=== PATIENT | female | born 1945 | race Caucasian/White ===

== ENCOUNTER → 2017-05-14 | Outpatient (CLI) | payer MEDICARE ==
--- NOTE | 2017-05-15 13:31 | MM ---
Reason for exam: screening (asymptomatic). Last mammogram was performed 1 year and 3 months ago. History: Patient is postmenopausal. Reductions of both breasts, 2004. Took estrogen for 2 years beginning at age 47. Physical Findings: A clinical breast exam by your physician is recommended on an annual basis and results should be correlated with mammographic findings. MG Screening Mammo w CAD Bilateral CC and MLO view(s) were taken. Prior study comparison: February 07, 2016, bilateral MG screening mammo w CAD. November 07, 2014, bilateral MG screening mammo w CAD. The breast tissue is almost entirely fat. No significant changes when compared with prior studies. ASSESSMENT: Benign, BI-RAD 2 RECOMMENDATION: Routine screening mammogram of both breasts in 1 year.
== END | disposition home or self-care (01) ==
LOC: RADMAMWWP 12:29
PROVIDERS: ATTEND Family Medicine
DX: Z12.31 Encounter for screening mammogram for malignant neoplasm of breast (principal)
CPT/HCPCS: 77067

== ENCOUNTER → 2018-08-05 | Outpatient (CLI) | payer MEDICARE ==
--- NOTE | 2018-08-09 09:15 | MM ---
Reason for exam: screening (asymptomatic). Last mammogram was performed 1 year and 3 months ago. History: Patient is postmenopausal. Reductions of both breasts, 2004. Took estrogen for 2 years beginning at age 47. Physical Findings: A clinical breast exam by your physician is recommended on an annual basis and results should be correlated with mammographic findings. MG Screening Mammo w CAD Bilateral CC and MLO view(s) were taken. Prior study comparison: May 14, 2017, bilateral MG screening mammo w CAD. February 07, 2016, bilateral MG screening mammo w CAD. The breast tissue is almost entirely fat. No significant changes when compared with prior studies. ASSESSMENT: Negative, BI-RAD 1 RECOMMENDATION: Routine screening mammogram of both breasts in 1 year.
== END | disposition home or self-care (01) ==
LOC: RADMAMWWP 13:00
PROVIDERS: ATTEND Family Medicine
DX: Z12.31 Encounter for screening mammogram for malignant neoplasm of breast (principal)
CPT/HCPCS: 77067

== ENCOUNTER → 2020-05-08 | Outpatient (CLI) | payer MEDICARE ==
--- NOTE | 2020-05-09 10:43 | MM ---
Reason for exam: screening (asymptomatic). Last mammogram was performed 1 year and 9 months ago. History: Patient is postmenopausal. Reductions of both breasts, 2004. Took hormonal contraceptives for 6 years. Took estrogen for 2 years beginning at age 47. Physical Findings: A clinical breast exam by your physician is recommended on an annual basis and results should be correlated with mammographic findings. MG 3D Screening Mammo W/Cad Bilateral CC and MLO view(s) were taken. Prior study comparison: August 05, 2018, bilateral MG screening mammo w CAD. May 14, 2017, bilateral MG screening mammo w CAD. There are scattered fibroglandular densities. Finding: There are two groups of calcifications in the lower inner quadrant and upper outer quadrant, anterior position of the left breast. New finding and increase in number of calcifications in the upper outer quadrant group since August 05, 2018 and May 14, 2017. ASSESSMENT: Incomplete: need additional imaging evaluation, BI-RAD 0 RECOMMENDATION: Special view mammogram of the left breast. [facility] will attempt to contact patient to return for supplemental views.
--- NOTE | 2020-05-11 08:13 | BD ---
EXAMINATION TYPE: Axial Bone Density DATE OF EXAM: 05/08/2020 COMPARISON: NONE CLINICAL HISTORY: Height: 61 Weight: 186.3 FRAX RISK QUESTIONS: Alcohol (3 or more units per day): no Family History (Parent hip fracture): no Glucocorticoids (More than 3mos): no (Ex: prednisone, prednisolone, methylprednisolone, dexamethasone, and hydrocortisone). History of Fracture in Adulthood: no Secondary Osteoporosis: 1. Type 1 Diabetes: no 2. Hyperthyroidism: no 3. Menopause before 45: no 4. Malnutrition: no 5. Chronic liver disease: no Rheumatoid Arthritis: no Current Tobacco Use: no RISK FACTORS HISTORY OF: Surgery to Spine/Hip(right/left)/Wrist (right/left): no Family History of Osteoporosis: no Active: yes Diet low in dairy products/other sources of calcium: no Postmenopausal woman: age 47 Lost more than 2 inches in height since high school: no MEDICATIONS: lexapro, prevacid, lopressor, wellbutrin, lovastatin Thyroid Medications: synthroid How Lon years Additional History: EXAM MEASUREMENTS: Bone mineral densitometry was performed using the [employer]ideoflot System. Bone mineral density as measured about the Lumbar spine is: ----- L1-L4(G/cm2): 1.201 T Score Values are as follows: ----- L2: 0.1 ----- L3: 0.5 ----- L4: 0.0 ----- L1-L4: 0.2 Bone mineral density : baseline Bone mineral density about the R hip (g/cm2): 0.981 Bone mineral density about the L hip (g/cm2): 0.918 T Score values are as follows: -----R Neck: -0.4 -----L Neck: -0.9 -----R Total: 0.0 -----L Total: -0.1 Bone mineral density : baseline IMPRESSION: Normal (Values between +1 and -1 indicate normal bone mass). Consider repeating this study in 5 year s or sooner if there is some new clinical indication. NOTE: T-SCORE=SD OF THE YOUNG ADULT MEAN.
== END | disposition home or self-care (01) ==
LOC: RADMAMWWP 15:14
PROVIDERS: ATTEND Family Medicine
DX: Z12.31 Encounter for screening mammogram for malignant neoplasm of breast (principal); Z78.0 Asymptomatic menopausal state
CPT/HCPCS: 77063; 77067; 77080

== ENCOUNTER → 2020-05-10 | Outpatient (CLI) | payer MEDICARE ==
--- NOTE | 2020-05-10 09:19 | MM ---
Reason for exam: additional evaluation requested from abnormal screening. Last mammogram was performed less than 1 month ago. History: Patient is postmenopausal. Reductions of both breasts, 2004. Took hormonal contraceptives for 6 years. Took estrogen for 2 years beginning at age 47. Physical Findings: Nurse did not find any significant physical abnormalities on exam. MG 3D Work Up W/Cad LT CC with magnification, ML with magnification, and ML view(s) were taken of the left breast. Prior study comparison: August 05, 2018, bilateral MG screening mammo w CAD. May 14, 2017, bilateral MG screening mammo w CAD. There are scattered fibroglandular densities. Finding: There are coarse heterogeneous, grouped/clustered calcifications in the upper outer quadrant, anterior position of the left breast 4cm from the nipple consistent with 2019 appearance and number, increased from 2018. No significant changes in finding since August 05, 2018 and May 14, 2017. These results were verbally communicated with the patient and result sheet given to the patient on 05/10/20. ASSESSMENT: Suspicious, BI-RAD 4 RECOMMENDATION: Stereotactic core biopsy of the left breast. Called Dr. Real's office with mammographic findings and has scheduled an appointment for the patient for 06/07/[address] Israel. PRELIMINARY REPORT CALLED AND FAXED TO DR. ISRAEL ON 05/10/20.
== END | disposition home or self-care (01) ==
LOC: RADMAMWWP 07:39
PROVIDERS: ATTEND Family Medicine
DX: Z78.0 Asymptomatic menopausal state (principal)
CPT/HCPCS: 77065; G0279; 77061

== ENCOUNTER → 2020-06-07 | Outpatient (CLI) | payer MEDICARE ==
[2020-06-07 11:43] VITALS: BP 174/73; PULSE 54; RESP 18; TEMP 98
--- NOTE | 2020-06-07 12:11 | P.GSHP ---
History of Present Illness H&P Date: 06/07/20 Chief Complaint: abnormal left breast mammogram Jane is a 75 -year-old white female seen in consultation for Dr. Real regarding the mammographic abnormality in the left breast. She underwent a bilateral screening mammogram and [id number]. This revealed some increased calcifications in the upper outer quadrant of the left breast[place] [id number]. She was noted to have coarse heterogeneous group calcifications in the upper outer quadrant anterior position of the left breast. No lesions of concern had been seen in the right breast. She does not feel any lumps masses or nodules in her breast. She does not complain of any nipple dis charge or skin changes. She is not complaining of any breast pain. She does not complain of any recent trauma or infection in the breast. She did have bilateral breast reduction in 2003. Caffeine: 4 cups coffee/day nicotine: none chocolate: Several times a week hormones: None Family history: brother: bladder and liver cancer maternal uncle: lung cancer Hormonal history: Menarche: 13 , breast fed; no, age at first : 24 menopasue: 52 BCP: 3 years hormones: none Surgical history: Bilateral breast reduction 2 C-sections Right kidney removed/infections no cancer Medical History: back and neck pain Fissures and hemorrhoids HTN hypothyroid high cholesterol TIA Social History: smoke: stopped 40 years ago alcohol: occasional drugs: none - Constitutional Constitutional: Reports sweats, Denies chills, Denies fever - EENT Eyes: denies blurred vision, denies pain Ears: bilateral: tinnitus, deny: decreased hearing Ears, nose, mouth and throat: Reports headache, Denies sore throat - Breasts Breasts: bilateral: as per HPI - Cardiovascular Cardiovascular: Reports shortness of breath, Denies chest pain - Respiratory Comment: hoarseness related to sinus Respiratory: Denies cough, Denies 7 - Gastrointestinal Gastrointestinal: Reports constipation - Genitourinary (Female) Genitourinary: Reports as per HPI - Menstruation Menstruation: Reports postmenopausal - Musculoskeletal Comment: Back and neck pain - Integumentary Comment: dry skin Integumentary: Reports pruritus - Neurological Neurological: Reports weakness - Psychiatric Psychiatric: Reports anxiety, Denies depression - Endocrine Comment: hypothyroid - Hematologic/Lymphatic Comment: aspirin/motrin for muscle pain - Allergic/Immunologic Comment: sinus allergies Past Medical History Past Medical History: CVA/TIA, Hyperlipidemia, Hypertension, Thyroid Disorder History of Any Multi-Drug Resistant Organisms: None Reported Past Surgical History: Breast Surgery, Section, Tonsillectomy Additional Past Surgical History / Comment(s): rt nephrectomy Past Anesthesia/Blood Transfusion Reactions: No Reported Reaction Smoking Status: Former smoker Past Alcohol Use History: Rare Past Drug Use History: None Reported Medications and Allergies Home Medications Medication Instructions Recorded Confirmed Type Escitalopram [Lexapro] 10 mg PO DAILY 06/24/13 06/07/20 History Lansoprazole [Prevacid] 30 mg PO DAILY 06/24/13 06/07/20 History Levothyroxine Sodium [Synthroid] 50 mcg PO DAILY 06/24/13 06/07/20 History Lovastatin [Mevacor] 40 mg PO HS 06/24/13 06/07/20 History Aspirin 81 mg PO DAILY 06/07/20 06/07/20 History Calcium Carbonate/Vitamin D3 600 mg PO DAILY 06/07/20 06/07/20 History [Caltrate 600 Plus D3 20 Mcg (800 Iu)] Cholecalciferol (Vitamin D3) 125 mcg PO DAILY 06/07/20 06/07/20 History [Vitamin D3 (5000 Iu)] L.acidoph,Paracasei, B.lactis 1 each PO DAILY 06/07/20 06/07/20 History [Probiotic] Metoprolol Tartrate [Lopressor] 25 mg PO BID 06/07/20 06/07/20 History Stool Softener 1 tab PO BID 06/07/20 06/07/20 History buPROPion XL [Wellbutrin Xl] 150 mg PO DAILY 06/07/20 06/07/20 History Allergies Allergy/AdvReac Type Severity Reaction Status Date / Time No Known Allergies Allergy Verified 06/07/20 11:35 Surgical - Exam Vital Signs Temp Pulse Resp BP Pulse Ox 98.0 F 54 L 18 174/73 98 06/07/20 11:40 06/07/20 11:40 06/07/20 11:40 06/07/20 11:40 06/07/20 11:40 BMI 35.9 - General no distress - Eyes normal ocular movement - Neck no masses, trachea midline - Respiratory normal expansion, normal respiratory effort, clear to auscultation - Cardiovascular Rhythm: regular Heart Sounds: normal: S1, S2 - Abdomen Abdomen: soft, non tender, no guarding, no rigid, no rebound - Integumentary normal turgor - Neurologic no disoriented, no combative - Musculoskeletal normal gait - Psychiatric oriented to time, oriented to person, oriented to place, speech is normal, memory intact breast exam: BRA: 48D Inspection: Bilateral grade 2/3 ptosis Palpation: right breast: Multi-positional exam fibrocystic changes no dominant masses or nodules of concern, well-healed scar from prior reduction mammoplasty Right axilla: No adenopathy of concern Left breast: Multi-positional exam fibrocystic changes no dominant masses or nodules of concern, well-healed scars from prior reduction mammoplasty Left axilla: No adenopathy of concern Results Mammogram reviewed with Dr. Lamb and discussed with him Assessment and Plan Assessment: Impression: 1. Mammographic abnormality left breast upper outer quadrant anterior region 2. Patient status post bilateral reduction mammoplasty 3. Back and neck pain 4. Anxiety 5. Hypothyroidism 6. History of TIAs Plan: 1. Patient to undergo stereotactic core biopsy left breast 2. Medical management of medical conditions 3. We have discussed the patient laying on the stereo table was secondary to her back and neck pain and she states that that should be no problem Risks and benefits of the procedure discussed with the patient. She understands and wishes to proceed. CC: Dr. Real
== END ==
LOC: WWCWWP 11:05
PROVIDERS: ATTEND Surgery
DX: R92.1 Mammographic calcification found on diagnostic imaging of breast (principal); I10 Essential (primary) hypertension; E03.9 Hypothyroidism, unspecified; E78.5 Hyperlipidemia, unspecified; F41.9 Anxiety disorder, unspecified; Z87.891 Personal history of nicotine dependence; Z98.86 Personal history of breast implant removal; Z79.82 Long term (current) use of aspirin; Z79.899 Other long term (current) drug therapy; Z86.73 Personal history of transient ischemic attack (TIA), and cerebral infarction without residual deficits

== ENCOUNTER → 2020-06-28 | Day surgery (SDC) | payer MEDICARE ==
[2020-06-28 07:14] VITALS: RESP 16
--- NOTE | 2020-06-28 08:29 | P.PCN ---
Date of Procedure: 06/28/20 Preoperative Diagnosis: Microcalcifications of concern left breast Postoperative Diagnosis: Same Procedure(s) Performed: Stereotactic core biopsy left breast Anesthesia: local Surgeon: Mary Israel Estimated Blood Loss (ml): 3 Pathology: other (Breast tissue) Condition: stable Disposition: same day Indications for Procedure: Microcalcifications of concern left breast Operative Findings: Microcalcifications noted in x-ray of specimen Description of Procedure: Jane is a 75-year-old white female who was noted to have microcalcifications of concern in her left breast. Stereotactic core biopsy was recommended. Risks and benefits of the procedure as well as alternatives were discussed and the patient wished to proceed. The patient was taken to the stereotactic core biopsy room. She was positioned prone on the lo-rad table. A loan secretary film CC from above approach was utilized. The area of concern was identified. The area was targeted. The breast was prepped using Betadine. 20 mL of 1% lidocaine was used to anesthetize the area of concern. A 9-gauge vacuum-assisted core rotating biopsy needle was driven to the correct coordinates. Pre-fire film was obtained. The needle was noted to be in the correct location. The needle was fired. A post fire film was obtained. The needle was noted to be in the correct location. 5 samples were obtained. Radiograph of the specimen revealed the area of concern had been adequately sampled. A secure hira Top-Hat clip was placed. The specimen was sent to pathology. The patient will follow-up with Dr. Aj next week.
[2020-06-28 08:57] VITALS: BP 160/72; PULSE 54; TEMP 98
--- NOTE | 2020-06-28 09:02 | MM ---
EXAMINATION TYPE: MG stereo VAD BX LT DATE OF EXAM: 06/28/2020 COMPARISON: Prior mammogram May 10, 2020 and older studies CLINICAL HISTORY: Abnormal mammogram TECHNIQUE: Stereotactic guided core biopsy of left breast with clip placement and follow-up diagnostic two-view mammogram.. FINDINGS: The procedure of stereotactic guided core biopsy was explained to the patient. Benefits, alternatives, and risks were discussed. An informed consent was then obtained. [facility] Shortness pathway was lateral approach. I performed the localization, then surgeon, Dr. Israel performed the remainder of the procedure. A vacuum assisted biopsy gun was used to obtain multiple core samples. The patient tolerated the procedure well without any immediate complication. The patient was kept in the radiology department for short stay after the procedure and then discharged home in stable condition. Targeted calcifications are identified in specimen mammogram. Post biopsy mammogram shows the clip to appear in satisfactory position relative to the targeted area of concern on the preprocedure images. Few residual calcifications seen mammographically 1 cm inferior to the clip on postprocedure mammogram. IMPRESSION: SUCCESSFUL, UNCOMPLICATED STEREOTACTIC GUIDED CORE BIOPSY OF AREA OF CONCERN IN THE LEFT BREAST, FULL PATHOLOGY RESULTS TO FOLLOW. Low to intermediate index of suspicion noted at time of procedure. 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 Recommendation Follow up mammogram of the left breast in 6 months. MTDD
== END ==
LOC: RADMAMWWP 06:53
PROVIDERS: ATTEND Surgery
DX: D24.2 Benign neoplasm of left breast (principal); R92.1 Mammographic calcification found on diagnostic imaging of breast; R92.8 Other abnormal and inconclusive findings on diagnostic imaging of breast
CPT/HCPCS: 88305; 19081; A4648; J2001

== ENCOUNTER → 2020-07-05 | Outpatient (CLI) | payer MEDICARE ==
[2020-07-05 09:46] VITALS: BP 168/89; PULSE 56; RESP 18; TEMP 97.8
--- NOTE | 2020-07-05 09:52 | P.PN ---
Subjective Progress Note Date: 07/05/20 Principal diagnosis: fiboradenomatoid hyperplasia with calcifications and background fibrocystic changes Jane is a 75-year-old white female status post a tactic core biopsy of the left breast performed on 5620. Pathology was benign showing fibroadenomatoid hyperplasia with calcifications and background fibrocystic changes. She has some mild ecchymosis at the biopsy site with some minimal drainage. There is no evidence of any infection. She did have some skin e xcoriation related to the tape. Objective - Constitutional General appearance: Present: obese - EENT Eyes: Present: EOMI ENT: Present: hearing grossly normal - Neck Neck: Present: normal ROM - Respiratory Respiratory: bilateral: CTA - Cardiovascular Rhythm: regular Heart sounds: normal: S1, S2 - Integumentary Integumentary Comment(s): Ecchymosis at biopsy site, no evidence of infection or hematoma minimal spotting at the actual needle insertion site, patient is on aspirin - Musculoskeletal Musculoskeletal: Present: gait normal - Psychiatric Psychiatric: Present: A&O x's 3, appropriate affect, intact judgment & insight Assessment and Plan Assessment: Impression: 1. Left breast core biopsy/pathology benign fibrocystic changes Plan: 1. Repeat left breast mammogram in 6 months with physician exam at that time Cc: Dr. pleitez
== END ==
LOC: WWCWWP 09:33
PROVIDERS: ATTEND Surgery
DX: N60.12 Diffuse cystic mastopathy of left breast (principal); Z87.891 Personal history of nicotine dependence

== ENCOUNTER → 2020-10-17 | Outpatient (CLI) | payer MEDICARE ==
--- NOTE | 2020-10-17 11:26 | US ---
EXAMINATION TYPE: US liver DATE OF EXAM: 10/17/2020 COMPARISON: NONE CLINICAL HISTORY: Q44.6 CYSTIC DISEASE OF LIVER. Pt states cyst on liver seen on outside MRI, right k idney surgically removed EXAM MEASUREMENTS: Liver Length: 14.6 cm Gallbladder Wall: 0.2 cm CBD: 1.0 cm Pancreas: 3mm pancreatic duct visualized Liver: A couple of probable cysts visualized within right lobe, largest right posterior lobe with se ptation= 1.6 x 0.9 x 1.4 cm Gallbladder: 1.0 cm non-mobile gallstone within neck Evidence for sonographic Leonard's sign: No CBD: wnl Right Kidney: Surgically absent IMPRESSION: Hepatic cysts. Multiple stone.
== END | disposition home or self-care (01) ==
LOC: RADUSWWP 09:22
PROVIDERS: ATTEND Family Medicine
DX: K76.89 Other specified diseases of liver (principal); K80.20 Calculus of gallbladder without cholecystitis without obstruction
CPT/HCPCS: 76705

== ENCOUNTER → 2021-01-10 | Outpatient (CLI) | payer MEDICARE ==
--- NOTE | 2021-01-10 14:29 | MM ---
Reason for exam: follow-up at short interval from prior study. Last mammogram was performed 8 months ago. History: Patient is postmenopausal. Benign MG stereo VAD BX LT of the left breast, June 28, 2020. Reductions of both breasts, 2003. Took hormonal contraceptives for 6 years. Took estrogen for 2 years beginning at age 47. Physical Findings: Nurse did not find any significant physical abnormalities on exam. MG 3D Diag Mammo W/Cad LT CC, MLO, and XCCL view(s) were taken of the left breast. Prior study comparison: May 10, 2020, left breast MG 3d work up w/cad LT. May 08, 2020, bilateral MG 3d screening mammo w/cad. The breast tissue is almost entirely fat. Previous mammotome biopsy in the left breast. No significant new findings when compared with previous films. These results were verbally communicated with the patient and result sheet given to the patient on 01/10/21. ASSESSMENT: Benign, BI-RAD 2 RECOMMENDATION: Return to routine screening mammogram schedule for both breasts. Back on schedule.
== END ==
LOC: RADMAMWWP 10:13
PROVIDERS: ATTEND Surgery
DX: R92.2 Inconclusive mammogram (principal); Z78.0 Asymptomatic menopausal state
CPT/HCPCS: 77065; G0279; 77061

== ENCOUNTER → 2021-01-25 | Outpatient (CLI) | payer MEDICARE ==
[2021-01-25 08:59] VITALS: BP 147/71; PULSE 69; RESP 18; TEMP 97.8
--- NOTE | 2021-01-25 09:18 | P.PN ---
Subjective Progress Note Date: 01/25/21 Principal diagnosis: surveillance fibrocystic breast changes Jane is a 75 -year-old white female seen in June [address] Real regarding a mammographic abnormality in the left breast. [place] [address]. This revealed some increased calcifications in the upper outer quadrant of the left breast[place] [address]. She was noted to have coarse heterogeneous group calcifications in the upper outer quadrant anterior position of the left breast. No lesions of concern had been seen in the right breast. She underwent a stereotactic core biopsy of the left breast on 56. Pathology was benign showing fibroadenomatoid hyperplasia with calcifications and background fibrocystic changes.She does not feel any lumps masses or nodules in her breast. She does not complain of any nipple discharge or skin changes. She is not complaining of any breast pain. She does not complain of any recent trauma or infection in the breast. She did have bilateral breast reduction in 2003. she had a left breast mammogram performed on [id number] this was benign BIRADS 2. Caffeine: 4 cups coffee/day nicotine: none chocolate: Several times a week hormones: None Family history: brother: bladder and liver cancer maternal uncle: lung cancer Hormonal history: Menarche: 13 , breast fed; no, age at first : 24 menopasue: 52 BCP: 3 years hormones: none Surgical history: Bilateral breast reduction 2 C-sections Right kidney removed/infections no cancer Medical History: back and neck pain Fissures and hemorrhoids HTN hypothyroid high cholesterol TIA Social History: smoke: stopped 40 years ago alcohol: occasional drugs: none - Constitutional Constitutional: Reports sweats, Denies chills, Denies fever - EENT Eyes: denies blurred vision, denies pain Ears: bilateral: tinnitus, deny: decreased hearing Ears, nose, mouth and throat: Reports headache, Denies sore throat - Breasts Breasts: bilateral: as per HPI - Cardiovascular Cardiovascular: Reports shortness of breath, Denies chest pain - Respiratory Comment: hoarseness related to sinus Respiratory: Denies cough, Denies 7 - Gastrointestinal Gastrointestinal: Reports constipation - Genitourinary (Female) Genitourinary: Reports as per HPI - Menstruation Menstruation: Reports postmenopausal - Musculoskeletal Comment: Back and neck pain - Integumentary Comment: dry skin Integumentary: Reports pruritus - Neurological Neurological: Reports weakness - Psychiatric Psychiatric: Reports anxiety, Denies depression - Endocrine Comment: hypothyroid - Hematologic/Lymphatic Comment: aspirin/motrin for muscle pain - Allergic/Immunologic Comment: sinus allergies Objective - Vital Signs Vital signs: Vital Signs Temp 97.8 F 01/25/21 08:56 Pulse 69 01/25/21 08:56 Resp 18 01/25/21 08:56 BP 147/71 01/25/21 08:56 Pulse Ox 94 L 01/25/21 08:56 Intake & Output 01/24/21 01/25/21 01/25/21 18:59 06:59 18:59 Weight 81.647 kg - Constitutional General appearance: Present: cooperative - EENT Eyes: Present: EOMI ENT: Present: hearing grossly normal - Neck Neck: Present: normal ROM - Respiratory Respiratory: bilateral: CTA - Cardiovascular Heart sounds: normal: S1, S2 - Gastrointestinal General gastrointestinal: Present: soft - Integumentary Integumentary: Present: normal turgor - Musculoskeletal Musculoskeletal: Present: gait normal - Psychiatric Psychiatric: Present: A&O x's 3, appropriate affect, intact judgment & insight - Additional findings Additional findings: Breast Exam: BRA: 48D inspection: bilateral reduction mammoplasty incisions Palpation: Right breast: Multiple positional exam fibrocystic changes no dominant masses or nodules of concern Right axilla: No adenopathy of concern Left breast: Multiple positional exam fibrocystic changes no dominant masses or nodules of concern Left axilla: No adenopathy of concern Assessment and Plan Assessment: impression: Fibrocystic breast changes Recent repeat left breast mammogram stable benign BIRADS 2 Plan: Bilateral mammogram in 6 months with physician exam at that time Patient notes any of concern with the patient sooner CC: Dr. Real
== END ==
LOC: WWCWWP 08:44
PROVIDERS: ATTEND Surgery
DX: N60.12 Diffuse cystic mastopathy of left breast (principal); I10 Essential (primary) hypertension; E03.9 Hypothyroidism, unspecified; E78.00 Pure hypercholesterolemia, unspecified; Z87.891 Personal history of nicotine dependence; Z86.73 Personal history of transient ischemic attack (TIA), and cerebral infarction without residual deficits; Z79.890 Hormone replacement therapy; Z79.899 Other long term (current) drug therapy

== ENCOUNTER → 2021-07-18 | Outpatient (CLI) | payer MEDICARE ==
--- NOTE | 2021-07-18 18:25 | P.PN ---
Subjective Progress Note Date: 07/18/21 Jane is a 76 -year-old white female seen in consultation for Dr. Real regarding a mammographic abnormality in the left breast. [place] [address]. This revealed some increased calcifications in the upper outer quadrant of the left breast[place] [id number]. She was noted to have coarse heterogeneous group calcifications in the upper outer quadrant anterior position of the left breast. No lesions of concern had been seen in the right breast. She did not feel any lumps masses or nodules in her breast. She did not complain of any nipple discharge or skin changes. She was not complaining of any breast pain. She did not complain of any recent trauma or infection in the breast. She did have bilateral breast reduction in 2003. The patient on 58 underwent a left breast stereotactic core biopsy. This was felt to be benign and concordant. She most recently [place] [address] which was benign BIRADS 2. At this time she is not complaining of any new lumps masses or nodules of concern in either breast. Caffeine: 4 cups coffee/day nicotine: none chocolate: Several times a week hormones: None Family history: brother: bladder and liver cancer maternal uncle: lung cancer Hormonal history: Menarche: 13 , breast fed; no, age at first : 24 menopasue: 52 BCP: 3 years hormones: none Surgical history: Bilateral breast reduction 2 C-sections Right kidney removed/infections no cancer Medical History: back and neck pain Fissures and hemorrhoids HTN hypothyroid high cholesterol TIA Social History: smoke: stopped 40 years ago alcohol: occasional drugs: none - Constitutional Constitutional: Reports sweats, Denies chills, Denies fever - EENT Eyes: denies blurred vision, denies pain Ears: bilateral: tinnitus, deny: decreased hearing Ears, nose, mouth and throat: Reports headache, Denies sore throat - Breasts Breasts: bilateral: as per HPI - Cardiovascular Cardiovascular: Reports shortness of breath, Denies chest pain - Respiratory Comment: hoarseness related to sinus Respiratory: Denies cough, Denies 7 - Gastrointestinal Gastrointestinal: Reports constipation - Genitourinary (Female) Genitourinary: Reports as per HPI - Menstruation Menstruation: Reports postmenopausal - Musculoskeletal Comment: Back and neck pain - Integumentary Comment: dry skin Integumentary: Reports pruritus - Neurological Neurological: Reports weakness - Psychiatric Psychiatric: Reports anxiety, Denies depression - Endocrine Comment: hypothyroid - Hematologic/Lymphatic Comment: aspirin/motrin for muscle pain - Allergic/Immunologic Comment: sinus allergies Objective - Constitutional General appearance: Present: cooperative - EENT Eyes: Present: EOMI ENT: Present: hearing grossly normal - Neck Neck: Present: normal ROM - Respiratory Respiratory: bilateral: CTA - Cardiovascular Heart sounds: normal: S1, S2 - Gastrointestinal General gastrointestinal: Present: soft - Integumentary Integumentary: Present: normal turgor - Musculoskeletal Musculoskeletal: Present: gait normal - Psychiatric Psychiatric: Present: A&O x's 3, appropriate affect, intact judgment & insight - Additional findings Additional findings: Breast examination: BRA: 48D Inspection: Fungal infection under her left breast Palpation: Right breast: Well-healed scars from reduction mammoplasty, no dominant masses or nodules of concern a multi-positional exam Right axilla: No adenopathy of concern Left breast: Multi-positional exam fibrocystic changes no dominant masses or nod ules of concern Left axilla: No adenopathy of concern Assessment and Plan Assessment: Impression: Fibrocystic breast changes Plan: Bilateral mammogram in 1 year with physician exam at that time Nystatin for fungal infection CC: Dr. Real
== END ==
LOC: WWCWWP 17:56
PROVIDERS: ATTEND Surgery
DX: N60.12 Diffuse cystic mastopathy of left breast (principal); I10 Essential (primary) hypertension; E78.00 Pure hypercholesterolemia, unspecified; E03.9 Hypothyroidism, unspecified; Z86.73 Personal history of transient ischemic attack (TIA), and cerebral infarction without residual deficits

== ENCOUNTER 2022-03-20 19:59 | Emergency (ER) | payer MEDICARE ==
[2022-03-20 20:08] VITALS: BP 180/78; PULSE 87; RESP 12; TEMP 98
[2022-03-20] MEDS ORDERED: MORPHINE SULFATE 4 MG/ML SYRINGE IVP STA (20:25)
--- NOTE | 2022-03-20 20:27 | ED ---
Fall HPI - General Chief Complaint: Fall Stated Complaint: Fall Time Seen by Provider: 03/20/22 20:19 Source: patient, RN notes reviewed Mode of arrival: EMS Limitations: no limitations - History of Present Illness Initial Comments: This is a pleasant well-appearing 77-year-old female who presents to the emergency room with complaints of slipping on the deck today landing on her left hip. She is complaining of left upper leg pain radiating down behind her left knee. Denies loss of consciousness. Denies any headaches or neck pain. No back pain. History of CVA, hypertension and right nephrectomy. She was given fentanyl by EMS prior to arrival. MD Complaint: fall -: hour(s) Fall From: standing When Fall Occurred: [address] [address] [address] Fall Occurred: home Loss of Consciousness: none Prolonged Down Time?: no Symptoms Prior to Fall: none Severity scale (1-10): 7 Context: tripped/slipped (on snow) Associated Symptoms: denies - Related Data Home Medications Medication Instructions Recorded Confirmed Escitalopram [Lexapro] 10 mg PO DAILY 06/24/13 01/25/21 Lansoprazole [Prevacid] 30 mg PO DAILY 06/24/13 01/25/21 Levothyroxine Sodium [Synthroid] 50 mcg PO DAILY 06/24/13 01/25/21 Lovastatin [Mevacor] 40 mg PO HS 06/24/13 01/25/21 Aspirin 81 mg PO DAILY 06/07/20 01/25/21 Calcium Carbonate/Vitamin D3 600 mg PO DAILY 06/07/20 01/25/21 [Caltrate 600 Plus D3 20 Mcg (800 Iu)] Cholecalciferol (Vitamin D3) 5,000 unit PO DAILY 06/07/20 01/25/21 [Vitamin D3 (5000 Iu)] L.acidoph,Paracasei, B.lactis 1 each PO DAILY 06/07/20 01/25/21 [Probiotic] Metoprolol Tartrate [Lopressor] 25 mg PO BID 06/07/20 01/25/21 Stool Softener 1 tab PO BID 06/07/20 01/25/21 buPROPion XL [Wellbutrin Xl] 150 mg PO DAILY 06/07/20 01/25/21 Allergies Allergy/AdvReac Type Severity Reaction Status Date / Time No Known Allergies Allergy Verified 01/25/21 08:56 Review of Systems ROS Statement: Those systems with pertinent positive or pertinent negative responses have been documented in the HPI. ROS Other: All systems not noted in ROS Statement are negative. Past Medical History Past Medical History: CVA/TIA, Hyperlipidemia, Hypertension, Thyroid Disorder History of Any Multi-Drug Resistant Organisms: None Reported Past Surgical History: Breast Surgery, Section, Tonsillectomy Additional Past Surgical History / Comment(s): rt nephrectomy, skin cancer removed from nose Past Anesthesia/Blood Transfusion Reactions: No Reported Reaction Smoking Status: Former smoker Past Alcohol Use History: None Reported, Rare Past Drug Use History: None Reported General Exam Limitations: no limitations General appearance: alert, in no apparent distress Head exam: Present: atraumatic, normocephalic, normal inspection Eye exam: Absent: scleral icterus, conjunctival injection, periorbital swelling Neck exam: Present: normal inspection, full ROM. Absent: tenderness, meningismus, lymphadenopathy, thyromegaly Respiratory exam: Present: normal lung sounds bilaterally. Absent: respiratory distress, accessory muscle use Cardiovascular Exam: Present: regular rate GI/Abdominal exam: Present: soft. Absent: distended, tenderness, rigid Extremities exam: Present: normal capillary refill. Absent: tenderness, pedal edema, calf tenderness Left Hip exam: Present: pelvic stability. Absent: tenderness, swelling, external rotation, internal rotation Upper Leg exam: Present: tenderness (proximal femur) Knee exam: Absent: tenderness, swelling Lower Leg exam: Absent: tenderness Ankle exam: Present: full ROM. Absent: tenderness, swelling Foot/Toe exam: Present: full ROM. Absent: tenderness Neurovascular tendon exam: Present: no vascular compromise. Absent: abnormal cap refill, extremity cold to touch, pallor, foot drop Neurological exam: Present: alert, oriented X3 Psychiatric exam: Present: normal affect, normal mood Skin exam: Present: warm, dry, normal color. Absent: cyanosis, diaphoretic, petechiae, pallor Course Vital Signs 03/20/22 20:03 Temperature 98.0 F Pulse Rate 87 Respiratory 12 Rate Blood Pressure 180/78 O2 Sat by Pulse 98 Oximetry Medical Decision Making - Medical Decision Making X-ray of the left hip and pelvis interpreted by me shows no evidence of fracture or dislocation. Pelvic ring is intact. Radiologist interpretation no acute fracture or dislocation pelvis left hip. No focal lytic or sclerotic lesions seen in the proximal left femur. Overlying soft tissue is unremarkable. Patient denies any other pain or discomfort. [facility] This is likely musculoskeletal pain from the fall. Patient was directed to take Tylenol and Motrin as needed for pain or discomfort. Topical pain relievers like icy hot, BenGay may be also be helpful. Follow-up with her primary care doctor next week. Return to the emergency room with any new or concerning symptoms. Case discussed with Dr. Santos Was pt. sent in by a medical professional or institution? @ -no Did you speak to anyone other than the patient for history? @ -no Did you review nursing and triage notes? @ -yes i agree Were old charts reviewed? @ -EMS record Differential Diagnosis? @ -Femur fracture, hip dislocation, pelvic fracture, arthritis EKG interpreted by me (3pts min.)? @ -[none] X-rays interpreted by me (1pt min.)? @ -yes as above CT interpreted by me (1pt min.)? @ -[none] U/S interpreted by me (1pt. min.)? @ -[none] What testing was considered but not performed? (CT, X-rays, U/S, labs)? Why? @ CT hip was considered however patient was able to ambulate and x-ray is negative What meds were considered but not given? Why? @ -none Did you discuss the management of the patient with other professionals? @ -no Did you reconcile home meds? @ -no Was smoking cessation discussed for >3mins.? @ -no Was critical care preformed (if so, how long)? @ -no Were there social determinants of health that impacted care today? How? (Homelessness, low income, unemployed, alcoholism, drug addiction, transportation, low edu. Level, literacy, decrease access to med. care, alf, rehab)? @ -none Was there de-escalation of care discussed even if they declined? (Discuss DNR or withdrawal of care, Hospice)? @ -no What co-morbidities impacted this encounter? (DM, HTN, Smoking, COPD, CAD, Cancer, CVA, Hep., AIDS, mental health diagnosis, sleep apnea, morbid obesity)? @ -CVA, hypertension right nephrectomy Was patient admitted / discharged? @ -Discharged Undiagnosed new problem with uncertain prognosis? @ -[none] Drug Therapy requiring intensive monitoring for toxicity (Heparin, Nitro, Insulin, Cardizem)? @ -no Were any procedures done? @ -no Diagnosis/symptom? @ -Fall, left leg pain, musculoskeletal paina Acute, or Chronic, or Acute on Chronic? @ acute Uncomplicated (without systemic symptoms) or Complicated (systemic symptoms)? @ -Uncomplicated Side effects of treatment? @ -[none] Exacerbation, Progression, or Severe Exacerbation] @ -[no] Poses a threat to life or bodily function? @ -[no] Disposition Clinical Impression: Fall, Musculoskeletal pain of left lower extremity Disposition: HOME SELF-CARE Condition: Good Instructions (If sedation given, give patient instructions): Fall Prevention for Older Adults (ED), Musculoskeletal Pain (ED) Additional Instructions: Rest and ice the leg. Tylenol Motrin as needed for pain. Topical pain relievers containing lidocaine will also be helpful. Is patient prescribed a controlled substance at d/c from ED?: No Referrals: Shelbi Real MD [Primary Care Provider] - 1-2 days Time of Disposition: 21:17
--- NOTE | 2022-03-20 20:44 | XR ---
EXAMINATION TYPE: XR Hip LT and AP Pelvis DATE OF EXAM: 03/20/2022 COMPARISON: NONE HISTORY: Falling injury with pelvic and left hip pain TECHNIQUE: A single AP view of the pelvis is obtained. Two views of the left hip are obtained. FINDINGS: There is no acute fracture/dislocation evident in the pelvis. The sacroiliac joints appea r symmetric and unremarkable. Mild to moderate axial joint space loss in both hips with mild acetabu lar spurring is seen. Pubic symphysis is intact. The overlying soft tissue appears unremarkable. Two views of left hip show no acute fracture or dislocation. No focal lytic or sclerotic lesion seen in the proximal left femur. The overlying soft tissue is unremarkable. IMPRESSION: There is no acute fracture or dislocation in the pelvis or left hip.
== END 2022-03-20 21:42 | disposition home or self-care (01) ==
LOC: EC 19:59
DX: M79.605 Pain in left leg (principal); E78.5 Hyperlipidemia, unspecified; I10 Essential (primary) hypertension; E07.9 Disorder of thyroid, unspecified; Z86.73 Personal history of transient ischemic attack (TIA), and cerebral infarction without residual deficits; Z87.891 Personal history of nicotine dependence; Z79.82 Long term (current) use of aspirin; Z79.899 Other long term (current) drug therapy; Z79.890 Hormone replacement therapy; W01.0XXA Fall on same level from slipping, tripping and stumbling without subsequent striking against object, initial encounter; Y92.009 Unspecified place in unspecified non-institutional (private) residence as the place of occurrence of the external cause
CPT/HCPCS: 73502; 99284; 96374; J2270

== ENCOUNTER → 2022-10-08 | Outpatient (CLI) | payer MEDICARE ==
--- NOTE | 2022-10-08 16:26 | MR ---
EXAMINATION TYPE: MR lumbar spine wo con DATE OF EXAM: 10/08/2022 COMPARISON: No HISTORY: Low back pain that radiates down both legs. TECHNIQUE: Multiplanar, multisequence images of the lumbar spine were acquired without IV contrast. L1-L2: Normal disc appearance without desiccation. No herniation, protrusion or disc bulging. No ca nal stenosis is present. Foramina are patent bilaterally. L2-L3: Mild disc desiccation noted. Circumferential disc bulge greatest posteriorly with mild effacem ent ventral thecal sac. No evidence for central stenosis or focal disc protrusion. Facet joint arthro chris resulting in mild bilateral foraminal encroachment. L3-L4: Moderate disc desiccation with moderate circumferential disc bulge greatest posteriorly. There is effacement of the ventral thecal sac with mild to moderate central stenosis. Mild bilateral neura l foraminal encroachment seen. L4-L5: Moderate disc desiccation with grade 1 anterolisthesis of L4 and L5. Broad-based posterior dis c bulge effaces the ventral thecal sac. Right lateral recess stenosis and mild bilateral foraminal en croachment. L5-S1: Mild to moderate disc desiccation with minimal left paracentral disc bulge. No evidence for he rniation or central stenosis. Foramina are patent bilaterally. Lumbar segments are intact. No paraspinal masses are identified. Conus medullaris has a normal appe arance. Incidental T10 hemangioma. IMPRESSION: 1. Multilevel degenerative disc disease. 2. Central stenosis noted L3-4. 3. Right lateral recess stenosis L4-5. Varying degrees of foraminal encroachment.
== END | disposition home or self-care (01) ==
LOC: RADMRIMAIN 13:22
PROVIDERS: ATTEND Family Medicine
DX: M51.36 Other intervertebral disc degeneration, lumbar region (principal); M48.061 Spinal stenosis, lumbar region without neurogenic claudication
CPT/HCPCS: 72148

== ENCOUNTER → 2022-10-08 | Outpatient (CLI) | payer MEDICARE ==
--- NOTE | 2022-10-09 09:34 | MM ---
Reason for Exam: Screening (asymptomatic). Last mammogram was performed 1 year(s) and 3 month(s) ago. Patient History: Menarche at age 13. First Full-Term at age 24. Postmenopausal. Estrogen for 2 years from age 47 until age 49. Patient used Hormonal Contraceptives for 6 years. 2003, Bilateral Reduction. 06/28/2020, Benign Core Biopsy on the left side. Risk Values: Gela 5 year model risk: 2.1%. NCI Lifetime model risk: 4.4%. Prior Study Comparison: 05/10/2020 Left Diagnostic Mammogram, [facility]. 01/10/2021 Left Diagnostic Mammogram, [facility]. 07/12/2021 Bilateral MG 3D diag mammo w/cad DC, [facility]. Tissue Density: There are scattered fibroglandular densities. Findings: Analyzed By CAD. There is no suspicious group of microcalcifications or new suspicious mass in either breast. Biopsy clip within left breast. Benign calcifications within both breasts. Overall Assessment: Benign, BI-RAD 2 Management: Screening Mammogram of both breasts in 1 year. A clinical breast exam by your physician is recommended on an annual basis and results should be correlated with mammographic findings. Note on Gela scores and lifetime risk: 1. A Gela score greater than 3% is considered moderate risk. If this is the case, consider specialist referral to assess eligibility for a risk reducing agent. If overall lifetime risk for the development of breast cancer is 20% or higher, the patient may qualify for future screening with alternating mammogram and breast MRI. Electronically signed and approved by: Kenny Jackson D.O.
== END | disposition home or self-care (01) ==
LOC: RADMAMWWP 12:58
PROVIDERS: ATTEND Surgery
DX: Z12.31 Encounter for screening mammogram for malignant neoplasm of breast (principal); Z78.0 Asymptomatic menopausal state
CPT/HCPCS: 77063; 77067

== ENCOUNTER → 2022-12-11 | Outpatient (CLI) | payer MEDICARE ==
[2022-12-11 11:18] VITALS: BP 150/77; PULSE 59; RESP 15; TEMP 98.6
--- NOTE | 2022-12-11 11:25 | P.PAINPG ---
PQRS Measure Charge Sheet Comment: HISTORY OF PRESENT ILLNESS: A 77 yr old female as a referral from [facility], [place], operated by [facility] presents today w severe and chronic LBP x 20 yrs secondary to DDD, spondylosis and facet arthropathy without myelopathy for evaluation. Pt states pain level is provoked at 9/10 in intensity, constant, localized in the mid to lower lumbar spine, sharp in character w shooting pain towards the BL hips and LEs. Pain is provoked by standing for periods of 5 minutes, for overactivity. Pain is alleviated by ET 4 weeks in September 14, medications (Tyl, Ibu), reclining, repositioning and rest. Oswestry axial pain score at 24. PMH: OA, CVA, Hyperlipidemia, HTN, Hypothyroid Disorder PSH: Breast Surgery, Section, Tonsillectomy, R Nephrectomy, Skin CA Resection SH: Former tobacco user, Rare ETOH use, No illicit drug use FH: Non contributory All: See list Meds: See list REVIEW OF ORGAN SYSTEMS: CONSTITUTIONAL: No fevers or chills. No recent weight loss. NEUROLOGICAL: + numbness and tingling along the distal extremities. No seizure disorders or headaches. MUSCULOSKELETAL: + pain PSYCHIATRIC: Denies current depression or suicidal thoughts. Physical Examinations : Constitutional : Cooperative , not in acute distress . Neurologic : Cranial nerve II to XII intact. No focal neurological deficits. Psychiatric : alert & oriented x 3. Matching mood & appropriate affect. Judgment & insight intact. Musculoskeletal : Cervical Spine Motor strength in the deltoid and biceps: Normal right side. Normal Left side Motor strength biceps and the wrist extensors: Normal right side . Normal left side Motor strength in the triceps muscle: Normal right side. Normal left side Deep tendon reflexes: Normal at the biceps. Normal at Brachioradialis. Normal at triceps Vertebral body tenderness to deep palpation over Cervical facet loading test: positive bilaterally Spurling test: positive bilaterally Neck distraction test: positive bilaterally Aureliano sign: positive bilaterally Lumbar spine Motor strength lower extremities ,thigh and legs 5/5 Right side , 5/5 Left side Deep tendon reflexes : Normal Knee Jerk. Normal Ankle Jerk Vertebral body tenderness over L3 Waite Test positive over BL L3-L4 Lumbar facet Loading Test: positive Right / positive Left Range of motion of the lumbar spine Flexion 30 degrees, extension 10 degrees Straight Leg Raise test: Left/ Right positive at degree Andrea test: positive right / positive left. Severe tenderness over the Sacroiliac joint on the Right / Left sides Gaenslen test: positive bilaterally Seated flexion test: positive bilaterally. Sacral spine : Severe tenderness over the Sacroiliac joint: right side / left side Range of motion: Flexion of the lumbar spine <60 degrees Range of motion: Extension of the lumbar spine <20 degrees Gaenslen's Test positive Jaun's Test positive Andrea test: positive right side / left side Thigh Thrust Test Sacral Thrust Test Imaging: MRI non contrast of the lumbar spine from 10/08/22 reviewed Assessment/ Plan : Lumbar DDD Recommendation of ILIANA L3-L4 #1. May need a series of injections for optimal pain relief. Risks, benefits of procedure discussed and patient verbalized understanding. Admits to anti- coagulant use or medical history of diabetes. Protocol for discontinuation/ continuation of medications maki procedure discussed. Minimal anesthesia provided, if clinically indicated, consisting of Versed and Fentanyl. All questions answered. I have spent greater than 30 minutes on patient care today. Dr Sauer was available by phone for the evaluation of this patient. The time was used to review the medical records including relevant urine studies and Prescription history (MAPs), review of the available imaging, evaluation and examination of the patient, coordination of care with the medical staff and if applicable referring physicians, as well as creation of the medical record PQRS Narrative: Smoking Status Former smoker Home Medications: Ambulatory Orders Escitalopram [Lexapro] 10 mg PO DAILY 06/24/13 Lansoprazole [Prevacid] 30 mg PO DAILY 06/24/13 Levothyroxine Sodium [Synthroid] 50 mcg PO DAILY 06/24/13 Lovastatin [Mevacor] 40 mg PO HS 06/24/13 Aspirin 81 mg PO DAILY 06/07/20 Calcium Carbonate/Vitamin D3 [Caltrate 600 Plus D3 20 Mcg (800 Iu)] 600 mg PO DAILY 06/07/20 Cholecalciferol (Vitamin D3) [Vitamin D3 (5000 Iu)] 5,000 unit PO DAILY 06/07/20 L.acidoph,Paracasei, B.lactis [Probiotic] 1 each PO DAILY 06/07/20 Metoprolol Tartrate [Lopressor] 25 mg PO BID 06/07/20 Stool Softener 1 tab PO BID 06/07/20 buPROPion XL [Wellbutrin Xl] 150 mg PO DAILY 06/07/20 Controlled Substance Measures - Controlled Substance Measures Is patient prescribed a controlled substance at discharge?: No
== END ==
LOC: PNWHC3 10:46
PROVIDERS: ATTEND Specialist
DX: M51.36 Other intervertebral disc degeneration, lumbar region (principal); M48.061 Spinal stenosis, lumbar region without neurogenic claudication; M19.90 Unspecified osteoarthritis, unspecified site; E78.5 Hyperlipidemia, unspecified; I10 Essential (primary) hypertension; E07.9 Disorder of thyroid, unspecified; Z86.73 Personal history of transient ischemic attack (TIA), and cerebral infarction without residual deficits; Z87.891 Personal history of nicotine dependence; Z79.82 Long term (current) use of aspirin
CPT/HCPCS: 99211

== ENCOUNTER 2023-01-01 08:34 | Day surgery (SDC) | payer MEDICARE ==
[~2023-01-01 08:34] MED LIST: LACTATED RINGERS 1,000 ML IV SCH
[2023-01-01 08:55] VITALS: TEMP 97.3
[2023-01-01] MEDS ORDERED: methylPREDNISolone ACETATE 40 MG/ML 1 ML VIAL ONE (09:26)
[2023-01-01] MEDS ORDERED: IOPAMIDOL M200 10 ML VIAL ONE (09:26)
--- NOTE | 2023-01-01 09:32 | P.PCN ---
Date of Procedure: 01/01/23 Procedure(s) Performed: PREOPERATIVE DIAGNOSIS: 1- Lumbar Degenerative Disc Diseases 2-Lumbar spondylosis with Facet arthropathy without myelopathy. 3-lumbar radiculopathy POSTOPERATIVE DIAGNOSIS: 1-lumbar degenerative disc disease. 2-lumbar spondylosis with facet arthropathy without myelopathy. 3-lumbar radiculopathy PROCEDURE 1. Lumbar epidural steroid injection under fluoroscopic guidance at the L3-4 level. (Fluoroscopy imaging was available in radiology department) 2. Lumbar epidurogram. ANESTHESIA: Lidocaine 1% 3 and then only. EBL: Minimal PROCEDURE INDICATION: The patient with low back pain and radiculitis symptoms unresponsive to conservative treatment. Fluoroscopy was used to optimize visualization of the needle placement and to maximize safety. PROCEDURE DESCRIPTION / TECHNIQUE: The patient was seen and identified in the preoperative area. Risks, benefits, complications including but not limited to infections ,bleeding ,allergic reaction to the medications ,nerve damage and not complete pain releife , and alternatives were discussed with the patient. The patient agreed to proceed with the procedure and signed the consent, and vital signs were stable. Patient was taken to the OR and time out was completed. The patient was placed in the prone position on procedure table and a pillow was placed under the abdomen to reduce lumbar lordosis. The lumbosacral area was prepped and draped in the usual sterile fashion.ere closely monitored during the procedure. Vital signs was monitered during the entire procedure. Using anterior-posterior fluoroscopy, the L3-4 interlaminar space was identified and the skin over this site was marked and then infiltrated with 1% lidocaine subcutaneously. Subsequently, a 20-gauge Tuohy epidural needle was inserted and advanced toward the epidural space using the ``Loss of resistance technique and guided by AP and lateral fluoroscopy. The correct needle position in the epidural space was verified with the injection of 2 mL of the water soluble contrast dye Isovue 200 contrast and observing an excellent epidurogram with the epidural spread of the dye, after negative aspiration for blood and CSF and in the absence of paresthesias. Again after negative aspiration, a 6 ml mixture containing 40 mg of Depo-medrol ( Preservetive Free ), and 2 ml of preservative free Normal Saline, and 2 ml of preservative free lidocaine 1% solution was injected and a washout of epidurogram was seen. Needle was withdrawn intact, skin was cleansed, and bandages were applied. COMPLICATIONS: None DISPOSITION / PLANS: The patient was placed in a supine position and transferred to the recovery area in a stable condition for observation. There was no evidence of lower extremity motor or sensory deficit after the procedure. Patient was discharged from the recovery room after meeting discharge criteria. Home discharge instructions were given to the patient by the staff. The patient was reexamined prior to discharge. The patient will schedule a follow up in the clinic in 2-4 weeks.
--- NOTE | 2023-01-01 09:44 | FL ---
Intraoperative/procedural fluoroscopic services were provided for lumbar epidural steroid injection. Total fluoroscopy time is 1.9 seconds with a total of 1 submitted image to PACS. Total DAP [id number] mG ym2. Please see the operative note for further details.
[2023-01-01 09:46] VITALS: RESP 16
[2023-01-01 10:11] VITALS: BP 139/74; PULSE 58
== END 2023-01-01 09:57 | disposition home or self-care (01) ==
LOC: ORPAIN 08:34
PROVIDERS: ATTEND Specialist
DX: M51.16 Intervertebral disc disorders with radiculopathy, lumbar region (principal); M47.26 Other spondylosis with radiculopathy, lumbar region; Z79.82 Long term (current) use of aspirin
CPT/HCPCS: 62323; J1030; Q9966

== ENCOUNTER → 2023-01-28 | Outpatient (CLI) | payer MEDICARE ==
--- NOTE | 2023-01-28 13:13 | P.PAINPG ---
Objective - Vital Signs Vital signs: Intake & Output 01/27/23 01/28/23 01/28/23 18:59 06:59 18:59 Weight 79.379 kg PQRS Measure Charge Sheet Comment: HISTORY OF PRESENT ILLNESS: A 77 yr old female presents today w severe and chronic LBP x 20 yrs secondary to DDD, spondylosis and facet arthropathy without myelopathy for evaluation s/p ILIANA L3-L4 #1. Pt states she experienced 60% pain relief x 3 wks s/p procedure. Pt states pain level is provoked at 8/10 in intensity, constant, localized in the R mid to lower lumbar spine, predominantly axial, sharp in character w occasional shooting pain towards the R hip and R knee. Pain is provoked by standing for periods of 5 minutes, for overactivity. Pain is alleviated by PT 8 weeks in Jul-September 14, medications, heat, reclining, repositioning and rest. Oswestry axial pain score at 14. Interventional procedures include ILIANA L3-L4 x1 Medications include Tyl, Tyl Arthritis, Ibu REVIEW OF ORGAN SYSTEMS: CONSTITUTIONAL: No fevers or chills. No recent weight loss. NEUROLOGICAL: + numbness and tingling along the distal extremities. No seizure disorders or headaches. MUSCULOSKELETAL: + pain PSYCHIATRIC: Denies current depression or suicidal thoughts. Physical Examinations : Constitutional : Cooperative , not in acute distress . Neurologic : Cranial nerve II to XII intact. No focal neurological deficits. Psychiatric : alert & oriented x 3. Matching mood & appropriate affect. Judgment & insight intact. Musculoskeletal : Cervical Spine Motor strength in the deltoid and biceps: Normal right side. Normal Left side Motor strength biceps and the wrist extensors: Normal right side . Normal left side Motor strength in the triceps muscle: Normal right side. Normal left side Deep tendon reflexes: Normal at the biceps. Normal at Brachioradialis. Normal at triceps Vertebral body tenderness to deep palpation over Cervical facet loading test: positive bilaterally Spurling test: positive bilaterally Neck distraction test: positive bilaterally Aureliano sign: positive bilaterally Lumbar spine Motor strength lower extremities ,thigh and legs 5/5 Right side , 5/5 Left side Deep tendon reflexes : Normal Knee Jerk. Normal Ankle Jerk Vertebral body tenderness over L4 Waite Test positive Lumbar facet Loading Test: positive Right / positive Left Range of motion of the lumbar spine Flexion 30 degrees, extension 10 degrees Straight Leg Raise test: Left/ Right positive at < 35 degrees Andrea test: positive right / positive left. Severe tenderness over the Sacroiliac joint on the Right / Left sides Gaenslen test: positive bilaterally Seated flexion test: positive bilaterally. Sacral spine : Severe tenderness over the Sacroiliac joint: right side / left side Range of motion: Flexion of the lumbar spine <60 degrees Range of motion: Extension of the lumbar spine <20 degrees Gaenslen's Test positive Jaun's Test positive Andrea test: positive right side / left side Thigh Thrust Test Sacral Thrust Test Imaging: MRI non contrast of the lumbar spine from 10/08/22 reviewed Assessment/ Plan : Lumbar DDD Recommendation of R TFESI L4-L5 #2. May need a series of injections for optimal pain relief. Risks, benefits of procedure discussed and patient verbalized understanding. Admits to anti- coagulant use or medical history of diabetes. Protocol for discontinuation/ continuation of medications maki procedure discussed. All questions answered. I have spent greater than 30 minutes on patient care today. Dr Sauer was available by phone for the evaluation of this patient. The time was used to review the medical records including relevant urine studies and Prescription history (MAPs), review of the available imaging, evaluation and examination of the patient, coordination of care with the medical staff and if applicable referring physicians, as well as creation of the medical record PQRS Narrative: Smoking Status Former smoker Home Medications: Ambulatory Orders Escitalopram [Lexapro] 20 mg PO DAILY 06/24/13 Lansoprazole [Prevacid] 30 mg PO DAILY 06/24/13 Levothyroxine Sodium [Synthroid] 50 mcg PO DAILY 06/24/13 Lovastatin [Mevacor] 40 mg PO HS 06/24/13 Aspirin 81 mg PO DAILY 06/07/20 Calcium Carbonate/Vitamin D3 [Caltrate 600 Plus D3 20 Mcg (800 Iu)] 800 mg PO DAILY 06/07/20 Cholecalciferol (Vitamin D3) [Vitamin D3 (5000 Iu)] 5,000 unit PO DAILY 06/07/20 L.acidoph,Paracasei, B.lactis [Probiotic] 1 each PO DAILY 06/07/20 Metoprolol Tartrate [Lopressor] 25 mg PO BID 06/07/20 Stool Softener 1 tab PO BID 06/07/20 buPROPion XL [Wellbutrin Xl] 150 mg PO DAILY 06/07/20 Controlled Substance Measures - Controlled Substance Measures Is patient prescribed a controlled substance at discharge?: No
[2023-01-28 13:28] VITALS: BP 154/67; PULSE 57; RESP 16; TEMP 96.9
== END ==
LOC: PNWHC3 12:23
PROVIDERS: ATTEND Specialist
DX: M51.36 Other intervertebral disc degeneration, lumbar region (principal); Z87.891 Personal history of nicotine dependence; Z79.82 Long term (current) use of aspirin
CPT/HCPCS: 99211

== ENCOUNTER 2023-02-26 09:40 | Day surgery (SDC) | payer MEDICARE ==
[2023-02-20 15:58] VITALS: BMI 34.2
[2023-02-26 10:15] VITALS: TEMP 97.4
[2023-02-26] MEDS ORDERED: DEXAMETHASONE SOD PHOSPHATE 10 MG/ML 1 ML VIAL ONE (10:25)
[2023-02-26] MEDS ORDERED: IOPAMIDOL M200 10 ML VIAL ONE (10:25)
--- NOTE | 2023-02-26 10:34 | P.PCN ---
Date of Procedure: 02/26/23 Description of Procedure: PREOPERATIVE DIAGNOSIS: Lumbar radiculopathy POSTOPERATIVE DIAGNOSIS: Lumbar radiculopathy PROCEDURE 1. Transforaminal epidural steroid injection under fluoroscopic guidance right L4-L5 2. Lumbar epidurogram IMAGING Fluoroscopy was used, images where saved to the medical record ANESTHESIA: Local only PROCEDURE DESCRIPTION / TECHNIQUE: The patient was seen and identified in the preoperative area. Risks, benefits, complications, and alternatives were discussed with the patient. The patient agreed to proceed with the procedure and signed the consent, vital signs were stable prior to the procedure. Patient was taken to the OR and time out was completed. The patient was placed in the prone position on procedure table and a pillow was placed under the abdomen to reduce lumbar lordosis. The lumbosacral area was prepped and draped in the usual sterile fashion. Vital signs were closely monitored during the procedure. Conscious sedation was used. Using oblique fluoroscopy, the chin of the "Darrian dog" at the pedicle and the skin and deeper tissues just below was localized with 1% lidocaine. Subsequently, a 22-gauge 5-inch spinal needle was advanced under a tunneled view fluoroscopic guidance just underneath the chin of the "Darrian dog". Under lateral fluoroscopy, the needle was then advanced to the posterior border interforaminal space. After negative aspiration of CSF and blood and with no paresthesias, 1 mL of Omnipaque-240 contrast dye was injected excellent epidurogram. Subsequently, a solution totalling 2ml of dexamethasone and PFNS was injected after negative aspiration (total of 10mg of dexamethasone was used). The needle was removed intact. COMPLICATIONS: None DISPOSITION: The patient was placed in a supine position and transferred to the recovery area in a stable condition for observation. There was no evidence of lower extremity motor or sensory deficit after the procedure. Patient was discharged from the recovery room after meeting discharge criteria. Home discharge instructions were given to the patient by the staff. The patient was reexamined prior to discharge. Follow up as directed.
[2023-02-26 11:03] VITALS: BP 157/77; PULSE 59; RESP 16
--- NOTE | 2023-02-26 12:38 | FL ---
Fluoroscopy INDICATION: Pain FINDINGS: Fluoroscopy time: 17 seconds. Total dose area product (DAP) in uGy*m?, mGy*cm? (or similar): 0.51573 Images obtained: 2. IMPRESSION: 1. Documentation of fluoroscopy.
== END 2023-02-26 12:09 | disposition home or self-care (01) ==
LOC: ORPAIN 09:40
PROVIDERS: ATTEND Hospitalist
DX: M54.16 Radiculopathy, lumbar region (principal); Z79.82 Long term (current) use of aspirin
CPT/HCPCS: 64483; J1100; Q9966

== ENCOUNTER → 2023-03-18 | Outpatient (CLI) | payer MEDICARE ==
--- NOTE | 2023-03-18 13:19 | P.PAINPG ---
PQRS Measure Charge Sheet Comment: HISTORY OF PRESENT ILLNESS: A 78 yr old female presents today w severe and chronic LBP x 20 yrs secondary to DDD, spondylosis and facet arthropathy without myelopathy for evaluation s/p R TFESI L4-L5 #1. Pt states she experienced 30 % pain relief x 3 days s/p procedure. Pt states pain level is provoked at 6 /10 in intensity, constant, localized in the R mid to lower lumbar spine, predominantly axial, sharp in character w occasional shooting pain towards the R hip and R knee. Pain is provoked by standing for periods of 5 minutes, or overactivity. Pain is alleviated by PT 8 weeks in Jul-September 14, medications, heat, reclining, repositioning and rest. Oswestry axial pain score at 14. Interventional procedures include ILIANA L3-L4 x1, R TFESI L4-L5 x1 Medications include Tyl ES, Tyl Arthritis, Ibu REVIEW OF ORGAN SYSTEMS: CONSTITUTIONAL: No fevers or chills. No recent weight lo ss. NEUROLOGICAL: + numbness and tingling along the distal extremities. No seizure disorders or headaches. MUSCULOSKELETAL: + pain PSYCHIATRIC: Denies current depression or suicidal thoughts. Physical Examinations : Constitutional : Cooperative , not in acute distress . Neurologic : Cranial nerve II to XII intact. No focal neurological deficits. Psychiatric : alert & oriented x 3. Matching mood & appropriate affect. Judgment & insight intact. Musculoskeletal : Cervical Spine Motor strength in the deltoid and biceps: Normal right side. Normal Left side Motor strength biceps and the wrist e xtensors: Normal right side . Normal left side Motor strength in the triceps muscle: Normal right side. Normal left side Deep tendon reflexes: Normal at the biceps. Normal at Brachioradialis. Normal at triceps Vertebral body tenderness to deep palpation over Cervical facet loading test: positive bilaterally Spurling test: positive bilaterally Neck distraction test: positive bilaterally Aureliano sign: positive bilaterally Lumbar spine Motor strength lower extremities ,thigh and legs 5/5 Right side , 5/5 Left side Deep tendon reflexes : Normal Knee Jerk. Normal Ankle Jerk Vertebral body tenderness over L4 Waite Test positive Lumbar facet Loading Test: positive Right / positive Left Range of motion of the lumbar spine Flexion 30 degrees, extension 10 degrees Straight Leg Raise test: Left/ Right positive at < 35 degrees Andrea test: positive right / positive left. Severe tenderness over the Sacroiliac joint on the Right / Left sides Gaenslen test: positive bilaterally Seated flexion test: positive bilaterally. Sacral spine : Severe tenderness over the Sacroiliac joint: right side / left side Range of motion: Flexion of the lumbar spine <60 degrees Range of motion: Extension of the lumbar spine <20 degrees Gaenslen's Test positive Jaun's Test positive Andrea test: positive right side / left side Thigh Thrust Test Sacral Thrust Test Imaging: MRI non contrast of the lumbar spine from 10/08/22 reviewed Assessment/ Plan : Lumbar DDD Recommendation of follow up w Dr Mortensen to explore additional treatment options. Will take OTC medications. All questions answered. I have spent greater than 30 minutes on patient care today. Dr Sauer was available by phone for the evaluation of this patient. The time was used to review the medical records including relevant urine studies and Prescription history (MAPs), review of the available imaging, evaluation and examination of the patient, coordination of care with the medical staff and if applicable referring physicians, as well as creation of the medical record PQRS Narrative: Smoking Status Former smoker Hx Alcohol Use (MH) No Home Medications: Ambulatory Orders Escitalopram [Lexapro] 20 mg PO DAILY 06/24/13 Lansoprazole [Prevacid] 30 mg PO DAILY 06/24/13 Levothyroxine Sodium [Synthroid] 50 mcg PO DAILY 06/24/13 Lovastatin [Mevacor] 40 mg PO HS 06/24/13 Aspirin 81 mg PO DAILY 06/07/20 Calcium Carbonate/Vitamin D3 [Caltrate 600 Plus D3 20 Mcg (800 Iu)] 800 mg PO DAILY 06/07/20 Cholecalciferol (Vitamin D3) [Vitamin D3 (5000 Iu)] 5,000 unit PO DAILY 06/07/20 L.acidoph,Paracasei, B.lactis [Probiotic] 1 each PO DAILY 06/07/20 Metoprolol Tartrate [Lopressor] 25 mg PO BID 06/07/20 Stool Softener 1 tab PO BID 06/07/20 buPROPion XL [Wellbutrin Xl] 150 mg PO DAILY 06/07/20 Controlled Substance Measures - Controlled Substance Measures Is patient prescribed a controlled substance at discharge?: No
[2023-03-18 13:42] VITALS: BP 140/74; PULSE 98; RESP 15; TEMP 98.2
== END ==
LOC: PNWHC3 12:49
PROVIDERS: ATTEND Specialist
DX: M51.36 Other intervertebral disc degeneration, lumbar region (principal); Z87.891 Personal history of nicotine dependence; Z79.82 Long term (current) use of aspirin
CPT/HCPCS: 99211

== ENCOUNTER → 2023-11-26 | Outpatient (CLI) | payer MEDICARE ==
--- NOTE | 2023-11-27 11:55 | MM ---
Reason for Exam: Screening (asymptomatic). Last mammogram was performed 1 year(s) and 2 month(s) ago. Patient History: Menarche at age 13. First Full-Term at age 24. Postmenopausal. Estrogen for 2 years from age 47 until age 49. Patient used Hormonal Contraceptives for 6 years. 2003, Bilateral Reduction. 06/28/2020, Benign Core Biopsy on the left side. Risk Values: Gela 5 year model risk: 2.0%. NCI Lifetime model risk: 4.2%. Prior Study Comparison: 01/10/2021 Left Diagnostic Mammogram, [facility]. 07/12/2021 Bilateral MG 3D diag mammo w/cad CD, [facility]. 10/08/2022 Bilateral MG 3D screening mammo w/cad, [facility]. Tissue Density: The breasts are almost entirely fatty. Findings: Analyzed By CAD. Right breast: There is no suspicious group of microcalcifications or new suspicious mass. Left breast: There is no suspicious group of microcalcifications or new suspicious mass. Overall Assessment: Negative, BI-RAD 1 Management: Screening Mammogram of both breasts in [address] [facility] will attempt to contact patient to return for supplemental views and ultrasound if indicated. Patient should continue monthly self-breast exams. A clinical breast exam by your physician is recommended on an annual basis. This exam should not preclude additional follow-up of suspicious palpable abnormalities. Note on Gela scores and lifetime risk: 1. A Gela score greater than 3% is considered moderate risk. If this is the case, consider specialist referral to assess eligibility for a risk reducing agent. 2. If overall lifetime risk for the development of breast cancer is 20% or higher, the patient may qualify for future screening with alternating mammogram and breast MRI. [facility], , 11/27/2023 11:52 AM. Electronically signed and approved by: Jose Fernando DO
== END | disposition home or self-care (01) ==
LOC: RADMAMWWP 16:26
PROVIDERS: ATTEND Family Medicine
DX: Z12.31 Encounter for screening mammogram for malignant neoplasm of breast
CPT/HCPCS: 77063; 77067

== ENCOUNTER → 2024-03-17 | Outpatient (CLI) | payer MEDICARE ==
--- NOTE | 2024-03-17 14:27 | MR ---
EXAMINATION TYPE: MR cervical spine wo con DATE OF EXAM: 03/17/2024 10:47 AM COMPARISON: 02/19/2024. CLINICAL INDICATION: Female, 79 years old with history of G95.9; PHH, chronic neck pain, fal , headaches. TECHNIQUE: Multi planar, multi sequence imaging was performed utilizing: T1-weighted, T2-weighted, an d turbo inversion recovery imaging of the cervical spine. IV Contrast: mL (None, if empty) FINDINGS: Alignment: The cervical vertebral bodies have preserved heights. Alignment is within normal limits gi jimmy patient positioning. Bones: Bone signal is within normal limits. No abnormal bone marrow edema on inversion recovery seque nces. Cord: The spinal cord is unremarkable with regards to their signal intensity and morphology. Discs: Intervertebral disc signal is maintained. C2-C3: No significant disc pathology. The spinal canal is patent. No neural foraminal stenosis. C3-C4: No significant disc pathology. The spinal canal is patent. No neural foraminal stenosis. C4-C5: No significant disc pathology. The spinal canal is patent. No neural foraminal stenosis. C5-C6: No significant disc pathology. The spinal canal is patent. No neural foraminal stenosis. C6-C7: A disc osteophyte complex is present with mild to moderate spinal canal stenosis. Bilateral f acet and uncovertebral joint arthropathy are present with mild bilateral neural foraminal stenosis. C7-T1: No significant disc pathology. The spinal canal is patent. No neural foraminal stenosis. IMPRESSION: 1. No evidence for disc herniation or significant spinal canal stenosis. 2. Mild to moderate disc degeneration with associated osteoarthritic changes worse at C6-C7 [facility], , 03/17/2024 2:25 PM
== END | disposition home or self-care (01) ==
LOC: RADMRIMAIN 09:48
PROVIDERS: ATTEND Orthopaedic Surgery
DX: M50.323 Other cervical disc degeneration at C6-C7 level (principal); M47.812 Spondylosis without myelopathy or radiculopathy, cervical region; G95.9 Disease of spinal cord, unspecified
CPT/HCPCS: 72141

== ENCOUNTER 2024-05-27 10:15 | Day surgery (SDC) | payer MEDICARE ==
[2024-05-25 10:55] VITALS: BMI 28.1
[~2024-05-27 10:15] MED LIST changes: -LACTATED RINGERS 1,000 ML IV SCH; +LIDOCAINE 1% (10MG/ML) FOR IV START INTRADERMA PRN; +MIDAZOLAM 2 MG/2 ML VIAL IV PRN; +ONDANSETRON 4 MG/2 ML VIAL IVP PRN; +TRANEXAMIC 1,000 MG/100ML-NACL 1,000 MG in SALINE 1 100ML.BAG IVPB PRN; +fentaNYL (PF) 50 MCG/ML 2 ML AMP IVP PRN
[2024-05-27] MEDS: ACETAMINOPHEN TAB 500 MG TAB PO PRN (10:53)
[2024-05-27] MEDS: GABAPENTIN 300 MG CAP PO PRN (10:53)
[2024-05-27] MEDS: DEXAMETHASONE SOD PHOSPHATE 4 MG/ML 1 ML VIAL IV ONE (11:29)
[2024-05-27] MEDS: ONDANSETRON 4 MG/2 ML VIAL IVP ONE (11:29)
[2024-05-27] MEDS: LACTATED RINGERS 1,000 ML IV SCH (11:29)
[2024-05-27 11:30] LABS: Basophils # (A) 0.1 k/uL (0-0.2); Basophils % (A) 1 %; Eosinophils # (A) 0.3 k/uL (0-0.7); Eosinophils % (A) 5 %; HCT 37.6 % (34.0-46.0); HGB 12.1 gm/dL (11.4-16.0); Lymphocytes # (A) 1.9 k/uL (1.0-4.8); Lymphocytes % (A) 26 %; MCH 30.5 pg (25.0-35.0); MCHC 32.3 g/dL (31.0-37.0); MCV 94.5 fL (80.0-100.0); Mean Platelet Volume 7.3; Monocytes # (A) 0.3 k/uL (0-1.0); Monocytes % (A) 5 %; Neutrophils # (A) 4.5 k/uL (1.3-7.7); Neutrophils % (A) 62 %; Platelet Count 249 k/uL (150-450); RBC 3.98 m/uL (3.80-5.40); RDW 13.3 % (11.5-15.5); WBC 7.3 k/uL (3.8-10.6)
[2024-05-27] MEDS: IV FLUID CONTINUATION 1,000 ML IV ONE ×2 (11:32)
[2024-05-27 11:41] LABS: ALT 21 U/L (4-34); AST 25 U/L (14-36); African American GFR (CKD) 80 (>60 ml/min/1.73 sqM); Albumin 4.6 g/dL (3.5-5.0); Alkaline Phosphatase 57 U/L (38-126); Anion Gap 8 mmol/L; Blood Urea Nitrogen 15 mg/dL (7-17); Calcium 10.4 mg/dL (8.4-10.2); Carbon Dioxide 28 mmol/L (22-30); Chloride 99 mmol/L (98-107); Glucose 82 mg/dL (74-99); Non-African American GFR(CKD) 69 (>60 ml/min/1.73 sqM); Potassium 4.7 mmol/L (3.5-5.1); Sodium 135 mmol/L (137-145); Total Bilirubin 0.7 mg/dL (0.2-1.3); Total Protein 6.9 g/dL (6.3-8.2)
[2024-05-27 11:50] LABS: Partial Thromboplastin Time 23.1 sec (22.0-30.0); Prothrombin Time 10.8 sec (10.0-12.5)
[2024-05-27] MEDS ORDERED: hydrALAZINE HCL 20 MG/ML 1 ML VIAL ONE (12:33)
[2024-05-27] MEDS ORDERED: LIDOCAINE 1% INJ 10MG/ML (20 ML MDV) ONE (12:33)
[2024-05-27] MEDS ORDERED: fentaNYL (PF) 50 MCG/ML 2 ML AMP ONE (12:33)
[2024-05-27] MEDS ORDERED: TRANEXAMIC 1,000 MG/100ML-NACL PREMIX BAG ONE (12:33)
[2024-05-27] MEDS ORDERED: ePHEDrine 50 MG/ML 1 ML VIAL ONE (12:33)
[2024-05-27] MEDS ORDERED: PROPOFOL 10 MG/ML 20 ML VIAL IV ONE (12:33)
[2024-05-27] MEDS ORDERED: GLYCOPYRROLATE 0.2 MG/ML 2 ML VIAL ONE (12:33)
[2024-05-27] MEDS ORDERED: KETAMINE HCL IN 0.9 % NACL 50 MG/5 ML SYRINGE ONE (12:33)
[2024-05-27] MEDS ORDERED: SUCCINYLCHOLINE CHLORIDE 200 MG/10 ML VIAL IV ONE (12:33)
[2024-05-27] MEDS ORDERED: MIDAZOLAM 2 MG/2 ML VIAL ONE (12:33)
[2024-05-27] MEDS: THROMBIN (BOVINE) 5,000 UNIT VIAL TOPICAL ONE (13:01)
--- NOTE | 2024-05-27 15:05 | FL ---
EXAMINATION TYPE: FL guidance operating room, XR cervical spine limited DATE OF EXAM: 05/27/2024 CLINICAL INDICATION: Female, 79 years old with history of CERVICAL FUSION, neck pain. TECHNIQUE: Fluoroscopy. Limited intraoperative views cervical spine. COMPARISON: MRI cervical spine March 17, 2024. FINDINGS: Fluoroscopic guidance was provided during cervical fusion procedure performed by Dr. Hakan garcia. A total of 17.7 seconds of fluoroscopic time was utilized during the procedure and 3 spot ninoska ges was acquired. Intraoperative images acquired show placement of fusion to the anterior C3-C4 and C 4-C5 along with anterior C6-C7 levels. TOTAL DAP = 0.2297 Gycm2. IMPRESSION: As Above. [facility], , 05/27/2024 3:02 PM
[2024-05-27] MEDS ORDERED: SENNOSIDES-DOCUSATE SODIUM 1 EACH TAB PO PRN (15:14)
[2024-05-27] MEDS ORDERED: MAGNESIUM HYDROXIDE 2,400 MG/30 ML CUP PO PRN (15:14)
[2024-05-27] MEDS ORDERED: HYDROcodone/APAP 7.5-325MG 1 EACH TAB PO PRN (15:18)
[2024-05-27] MEDS: HYDROmorphone 0.5 MG/0.5 ML SYRINGE IVP PRN ×2 (15:28→19:36)
[2024-05-27] MEDS: ACETAMINOPHEN TAB 325 MG TAB PO SCH (17:21)
[2024-05-27] MEDS: ATORVASTATIN 10 MG TAB PO SCH (20:55)
[2024-05-27] MEDS: METOPROLOL TARTRATE 25 MG TAB PO SCH (20:55)
[2024-05-27] MEDS: HYDROcodone/APAP 5-325MG 1 EACH TAB PO PRN (23:00)
[2024-05-28] MEDS: LEVOTHYROXINE 50 MCG TAB PO SCH (06:09)
--- NOTE | 2024-05-28 08:57 | CT ---
EXAMINATION TYPE: CT cervical spine wo con DATE OF EXAM: 05/28/2024 8:27 AM COMPARISON: None. CLINICAL INDICATION: Female, 79 years old with history of s/p cervical fusion, S/P Cervical Fusion, p ain TECHNIQUE: CT of the cervical spine is performed in the axial plane at 2 mm thick sections. Reconstr ucted images in the coronal, and sagittal plane are reviewed on the computer. Contrast used: mL of , (none if empty) Oral contrast used: (none if empty) CT DLP: 345.1 mGycm, Automated exposure control for dose reduction was used. FINDINGS: No acute fractures are evident. Disc spacers have been placed C3-4 C4-5 and C6-7. Postsurgical soft tissue changes are in the prevert ebral space and right neck. Vertebral body alignment is normal. Disc space narrowing is present C5-6. Vertebral body heights are preserved. No spinal canal stenosis is evident No neural foraminal stenosis is evident. IMPRESSION: 1. Postsurgical changes with disc spacers C3-4 C4-5 and C6-7. 2. Disc space narrowing C5-6. [facility], , 05/28/2024 8:54 AM
[2024-05-28] MEDS: PANTOPRAZOLE 40 MG TABLET PO SCH (09:14)
[2024-05-28] MEDS: CALCIUM CARB-VIT D 500 MG-5 MCG TAB PO SCH (09:14)
[2024-05-28] MEDS: ESCITALOPRAM 20 MG TAB PO SCH (09:14)
[2024-05-28] MEDS: buPROPion XL 150 MG TAB.ER.24H PO SCH (09:14)
[2024-05-28] MEDS: LACTOBACILLUS ACIDOPHILUS/PECT 1 EACH CAPSULE PO SCH (09:14)
[2024-05-28] MEDS: CHOLECALCIFEROL 125 MCG (5000 IU) TABLET PO SCH (09:14)
--- NOTE | 2024-05-28 09:33 | P.HPIM ---
History of Present Illness H&P Date: 05/28/24 Jane Hawley, is a 79-year-old female who was admitted to [facility] by Dr. Mortensen, and underwent cervical 37 anterior cervical discectomy and fusion with nerve integrity monitoring. She was admitted to the medical floor postprocedure. Consultation was requested for medical management while hospitalized. Her past medical history is significant for history of hypertension, history of hyperlipidemia, last echocardiogram February 2022 left ventricular ejection fraction 55%, last Lexiscan MPI ejection fraction 60% no reversible ischemia in August 2023, history of depression maintained on Wellbutrin and Lexapro, history of vitamin D deficiency, history of osteoarthritis, and history of degenerative disc disease. On review of systems there is no fever or chills no headache or dizziness no chest pain no shortness of breath no cough no nausea or vomiting no abdominal pain no diarrhea no blood in the stools no burning with urination no frequency or urgency and no hematuria. Past Medical History Past Medical History: Cancer, CVA/TIA, Hyperlipidemia, Hypertension, Thyroid Disorder Additional Past Medical History / Comment(s): Degenerative disc in neck. 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 Past Anesthesia/Blood Transfusion Reactions: No Reported Reaction Additional Past Anesthesia/Blood Transfusion Reaction / Comment(s): No hx of a blood transfusion Smoking Status: Former smoker - Past Family History Brother(s) Family Medical History: Cancer Additional Family Medical History / Comment(s): Bladder CA, passed of liver CA Father Family Medical History: Deep Vein Thrombosis (DVT) Additional Family Medical History / Comment(s): developed blood clot after gallbladder surgery. Medications and Allergies Home Medications Medication Instructions Recorded Confirmed Type Escitalopram [Lexapro] 20 mg PO DAILY 06/24/13 05/27/24 History Lansoprazole [Prevacid] 30 mg PO DAILY 06/24/13 05/27/24 History Levothyroxine Sodium [Synthroid] 50 mcg PO DAILY 06/24/13 05/27/24 History Lovastatin [Mevacor] 40 mg PO HS 06/24/13 05/27/24 History Aspirin 81 mg PO DAILY 06/07/20 05/27/24 History Calcium Carbonate/Vitamin D3 600 mg PO DAILY 06/07/20 05/27/24 History [Caltrate 600 Plus D3 20 Mcg (800 Iu)] Cholecalciferol (Vitamin D3) 5,000 unit PO DAILY 06/07/20 05/27/24 History [Vitamin D3 (5000 Iu)] L.acidoph,Paracasei, B.lactis 1 each PO DAILY 06/07/20 05/27/24 History [Probiotic] Metoprolol Tartrate [Lopressor] 25 mg PO BID 06/07/20 05/27/24 History Stool Softener 1 tab PO BID 06/07/20 05/27/24 History buPROPion XL [Wellbutrin Xl] 150 mg PO DAILY 06/07/20 05/27/24 History Cranberry Fruit Extract [Cranberry] 1 dose PO DAILY 05/25/24 05/27/24 History Allergies Allergy/AdvReac Type Severity Reaction Status Date / Time No Known Allergies Allergy Verified 05/27/24 10:36 Physical Exam Vitals: Vital Signs Temp Pulse Resp BP Pulse Ox 05/28/24 01:48 98.1 F 76 15 178/63 95 05/27/24 20:00 91 16 05/27/24 19:05 98.1 F 91 16 177/66 96 05/27/24 16:40 81 16 163/69 95 05/27/24 16:25 88 16 165/69 95 05/27/24 16:10 85 16 165/70 95 05/27/24 15:55 85 16 154/67 95 05/27/24 15:40 83 16 158/67 95 05/27/24 15:25 90 14 169/70 96 05/27/24 15:10 97.1 F L 82 12 183/74 99 05/27/24 10:58 97.0 F L 52 L 16 194/74 98 Intake and Output 05/27/24 05/28/24 05/28/24 22:59 06:59 14:59 Intake Total 1650 1080 Output Total 510 375 Balance 1140 705 Intake: IV 550 Oral 1100 1080 Output: Urine 485 375 Estimated Blood Loss 25 Other: Voiding Method Indwelling Catheter # Voids 750 Weight 66 kg In general patient is alert and oriented x 3 in no distress HEENT head normocephalic and atraumatic Neck is supple no JVD no goiter no lymphadenopathy no carotid bruit Chest examination is clear to auscultation no crackles no wheezing Cardiac exam reveals regular heart sounds S1 and S2 no gallops no murmurs Abdomen is soft nontender no organomegaly with normal bowel sounds Extremity exam reveals no edema no cyanosis or clubbing Neurological examination reveals no gross focal deficits Results CBC & Chem 7: 05/27/24 11:18 05/27/24 11:18 Labs: Abnormal Lab Results - Last 24 Hours (Table) 05/27/24 Range/Units 11:18 Sodium 135 L (137-145) mmol/L Calcium 10.4 H (8.4-10.2) mg/dL Thrombosis Risk Factor Assmnt - Choose All That Apply Any of the Below Risk Factors Present?: Yes Each Factor Represents 1 point: History of prior major surgery (<1month), Obesity (BMI >25) Other Risk Factors: Yes Each Risk Factor Represents 3 Points: Family history of DVT/PE Other congenital or acquired thrombophilia - If yes, enter type in comment: No Thrombosis Risk Factor Assessment Total Risk Factor Score: 5 Thrombosis Risk Factor Assessment Level: High Risk Assessment and Plan Plan: Cervical spondylosis with myelopathy, status post cervical 37 anterior cervical discectomy and fusion with nerve integrity monitoring Underlying history of hypertension Underlying history of hyperlipidemia Underlying history of depression Underlying history of hypothyroidism Remote history of smoking At this time patient was seen and examined Home medications reviewed and reordered For DVT prophylaxis SCD stockings Will monitor closely
[2024-05-28 09:45] LABS: Basophils # (A) 0.04 X 10*3/uL (0.00-0.10); Basophils % (A) 0.3 %; Eosinophils # (A) 0.03 X 10*3/uL (0.04-0.35); Eosinophils % (A) 0.2 %; HCT 37.1 % (37.2-46.3); HGB 11.9 g/dL (12.0-15.0); Lymphocytes # (A) 1.95 X 10*3/uL (0.90-5.00); Lymphocytes % (A) 14.9 %; MCH 31.2 pg (27.0-32.0); MCHC 32.1 g/dL (32.0-37.0); MCV 97.1 FL (80.0-97.0); Monocytes # (A) 1.19 X 10*3/uL (0.20-1.00); Monocytes % (A) 9.1 %; NRBC Per 100 WBC 0 X 10*3/uL (0.00-0.01); Neutrophils # (A) 9.85 X 10*3/uL (1.80-7.70); Neutrophils % (A) 75.1 %; Platelet Count 223 X 10*3/uL (140-440); RBC 3.82 X 10*6/uL (4.10-5.20); RDW 13.1 % (11.5-14.5); WBC 13.11 X 10*3/uL (4.50-10.00)
[2024-05-28 09:55] LABS: BUN/Creat Ratio 16.62 Ratio (12.00-20.00); Blood Urea Nitrogen 13.3 mg/dL (9.0-27.0); Calcium 9.6 mg/dL (8.7-10.3); Carbon Dioxide 23.5 mmol/L (21.6-31.8); Chloride 98 mmol/L (96-109); Glucose 98 mg/dL (70-110); Potassium 4.5 mmol/L (3.5-5.5); Sodium 132 mmol/L (135-145)
[2024-05-28] MEDS: hydrALAZINE HCL 20 MG/ML 1 ML VIAL IVP PRN (10:35)
--- NOTE | 2024-05-28 11:23 | P.PN ---
Subjective Progress Note Date: 05/28/24 Principal diagnosis: Status post ACDF C3-C4, C4-C5, C6-C7 Patient evaluated at bedside, she is sitting up resting in her hospital bed. Patient's rigid c-collar is in place. Urinary catheter remained in place. Anterior cervical drain is also in good position and condition. Patient is having minimal discomfort at this time. She has been up and ambulating with assistance of nursing, therapy was actually in the room about to get patient up and walking. Patient's blood pressure was noted to be significantly elevated, internal medicine is aware. She has no headaches, lightheadedness, chest pain or shortness of breath. Objective - Vital Signs Vital signs: Vital Signs Temp 98.3 F 05/28/24 06:54 Pulse 67 05/28/24 06:54 Resp 18 05/28/24 06:54 BP 195/65 05/28/24 09:29 Pulse Ox 93 L 05/28/24 06:54 FiO2 Intake & Output 05/27/24 05/28/24 05/28/24 18:59 06:59 18:59 Intake Total 1600 2180 Output Total 510 375 Balance 1090 1805 Weight 66 kg Intake: IV 1600 Oral 2180 Output: Urine 485 375 Estimated Blood Loss 25 Other: Voiding Method Indwelling Catheter # Voids 750 - Exam Gen: AOx3, NAD VSS stable at this time Integument: Postop dressing is in good position condition, drain is in adequate position with minimal serosanguineous/bloody output Palpation: No significant tenderness with palpation surrounding the anterior and posterior cervical spine ROM: Full range of motion in all major muscle groups of the bilateral upper and lower extremities, no focal deficits appreciated Sensory Exam: Senory exam to light touch is intact C5-T1 Senosry exam to light touch is intact L2-S1 Motor: 4/5 strength appreciated in the bilateral upper extremities with shoulder elev ation, shoulder abduction, elbow extension, elbow flexion, wrist extension, wrist flexion, pizza maker 4+/5 strength appreciate the bilateral lower extremities with hip flexion, knee extension, knee flexion, plantarflexion, dorsiflexion, EHL, FHL Reflexes: 2/4 in all UE and LE ] - Labs CBC & Chem 7: 05/28/24 06:08 05/28/24 06:08 Labs: Abnormal Lab Results - Last 24 Hours (Table) 05/27/24 05/28/24 05/28/24 Range/Units 11:18 06:08 06:08 WBC 13.11 H (4.50-10.00) X 10*3/uL RBC 3.82 L (4.10-5.20) X 10*6/uL Hgb 11.9 L (12.0-15.0) g/dL Hct 37.1 L (37.2-46.3) % MCV 97.1 H (80.0-97.0) FL MPV 9.0 L (9.5-12.2) FL Immature Gran # 0.05 H (0.00-0.04) X 10*3/uL Neutrophils # 9.85 H (1.80-7.70) X 10*3/uL Monocytes # 1.19 H (0.20-1.00) X 10*3/uL Eosinophils # 0.03 L (0.04-0.35) X 10*3/uL Sodium 135 L 132 L (137-145) mmol/L Calcium 10.4 H (8.4-10.2) mg/dL Assessment and Plan Assessment: Postoperative day #1 status post ACDF C3-C4, C4-C5, C6-C7 Acute blood loss anemia, expected surgical outcome, stable Hypertension Other medical comorbidities Plan: Pain control, continue with current medications DVT prophylaxis, aspirin 81 mg daily Surgical dressing/drain, continue to monitor. Hold for removal of drain on 05/29/2024 Discussed with nursing urinary catheter to be removed shortly, monitor for urinary retention Rigid c-collar was adjusted, plan to have patient utilize soft c-collar also Weight-bear as tolerated, recommend walker for assistance. No bending, lifting or twisting Internal medicine recommendations appreciated, nursing did notify me that they are working on blood pressure control Discharge planning: Pending patient's blood pressure and drain output, hopeful discharge to home on 05/29/2024 Time with Patient: Less than 30
[2024-05-28] MEDS: CYCLOBENZAPRINE 5 MG TAB PO PRN (11:51)
[2024-05-28] MEDS: traMADol 50 MG TAB PO PRN (16:41)
[2024-05-28] MEDS: amLODIPine 5 MG TAB PO SCH (18:59)
[2024-05-29 05:10] VITALS: RESP 18
[2024-05-29] MEDS: ASPIRIN 81 MG PO SCH (08:38)
[2024-05-29] MEDS: ONDANSETRON 4 MG/2 ML VIAL IVP PRN (08:39)
[2024-05-29 08:58] VITALS: BP 178/62; PULSE 81; TEMP 98.6
--- NOTE | 2024-05-29 10:07 | P.PN ---
Subjective Progress Note Date: 05/29/24 Jane Hawley, is a 79-year-old female who was admitted to [facility] by Dr. Mortensen, and underwent cervical 37 anterior cervical discectomy and fusion with nerve integrity monitoring. She was admitted to the medical floor postprocedure. Consultation was requested for medical management while hospitalized. Her past medical history is significant for history of hypertension, history of hyperlipidemia, last echocardiogram February 2022 left ventricular ejection fraction 55%, last Lexiscan MPI ejection fraction 60% no reversible ischemia in August 2023, history of depression maintained on Wellbutrin and Lexapro, history of vitamin D deficiency, history of osteoarthritis, and history of degenerative disc disease. On review of systems there is no fever or chills no headache or dizziness no chest pain no shortness of breath no cough no nausea or vomiting no abdominal pain no diarrhea no blood in the stools no burning with urination no frequency or urgency and no hematuria. On 05/29/2024 patient is alert and oriented x 3. Patient continuing to have elevated blood pressure will increase patient's Norvasc to 5 mg twice daily. Patient denies chest pain or shortness of breath. Patient denies nausea vomiting or diarrhea. Patient denies any urinary burning or frequency. Current vital signs temp 98.6, heart rate 81, respiratory rate 18, blood pressure 173/50 with a pulse ox of 95% on room air Objective - Vital Signs Vital signs: Vital Signs Temp 98.6 F 05/29/24 07:49 Pulse 81 05/29/24 07:49 Resp 18 05/29/24 07:49 BP 178/62 05/29/24 07:49 Pulse Ox 95 05/29/24 07:49 FiO2 Intake & Output 05/28/24 05/29/24 05/29/24 18:59 06:59 18:59 Intake Total 850 Balance 850 Intake: Oral 850 Other: Voiding Method Toilet # Voids 1 2 - Exam In general patient is alert and oriented x 3 in no distress HEENT head normocephalic and atraumatic Neck is supple no JVD no goiter no lymphadenopathy no carotid bruit Chest examination is clear to auscultation no crackles no wheezing Cardiac exam reveals regular heart sounds S1 and S2 no gallops no murmurs Abdomen is soft nontender no organomegaly with normal bowel sounds Extremity exam reveals no edema no cyanosis or clubbing Neurological examination reveals no gross focal deficits - Labs CBC & Chem 7: 05/28/24 06:08 05/28/24 06:08 Assessment and Plan Plan: Cervical spondylosis with myelopathy, status post cervical 37 anterior cervical discectomy and fusion with nerve integrity monitoring Underlying history of hypertension Underlying history of hyperlipidemia Underlying history of depression Underlying history of hypothyroidism Remote history of smoking At this time patient was seen and examined Home medications reviewed and reordered For DVT prophylaxis SCD stockings Will monitor closely
--- NOTE | 2024-05-29 10:50 | P.PN ---
Subjective Progress Note Date: 05/29/24 Principal diagnosis: Status post ACDF C3-C4, C4-C5, C6-C7 Patient evaluated at bedside, she is sitting up resting in her hospital bed. She is resting comfortably, she is utilizing the soft c-collar. Patient has been urinating since removal of the urinary catheter with no issues. She feels that the overall pain she was dealing with yesterday is much improved. She has no headaches, lightheadedness, chest pain or shortness of breath. Objective - Vital Signs Vital signs: Vital Signs Temp 98.6 F 05/29/24 07:49 Pulse 81 05/29/24 07:49 Resp 18 05/29/24 07:49 BP 178/62 05/29/24 07:49 Pulse Ox 95 05/29/24 07:49 FiO2 Intake & Output 05/28/24 05/29/24 05/29/24 18:59 06:59 18:59 Intake Total 850 Balance 850 Intake: Oral 850 Other: Voiding Method Toilet # Voids 1 2 - Exam Gen: AOx3, NAD VSS stable at this time Integument: Postop dressing and drain were removed today at bedside, incision is well-he aling, there is no active drainage appreciated Palpation: No significant tenderness with palpation surrounding the anterior and posterior cervical spine ROM: Full range of motion in all major muscle groups of the bilateral upper and lower extremities, no focal deficits appreciated Sensory Exam: Senory exam to light touch is intact C5-T1 Senosry exam to light touch is intact L2-S1 Motor: 4/5 strength appreciated in the bilateral upper extremities with shoulder elevation, shoulder abduction, elbow extension, elbow flexion, wrist extension, wrist flexion, finish molder 4+/5 strength appreciate the bilateral lower extremities with hip flexion, knee extension, knee flexion, plantarflexion, dorsiflexion, EHL, FHL Reflexes: 2/4 in all UE and LE ] - Labs CBC & Chem 7: 05/28/24 06:08 05/28/24 06:08 Assessment and Plan Assessment: Postoperative day #2 status post ACDF C3-C4, C4-C5, C6-C7 Acute blood loss anemia, expected surgical outcome, stable Hypertension Other medical comorbidities Plan: Pain control, Scotrun 5 mg / 325 mg, Flexeril 5 mg at discharge, will also utilize stool softener DVT prophylaxis, aspirin 81 mg daily during the hospital stay Dressing was applied today at bedside, wound care instructions were discussed. Rigid/soft collar instructions were discussed with patient Weight-bear as tolerated, recommend walker for assistance. No bending, lifting or twisting Internal medicine recommendations appreciated Discharge planning: Stable for discharge home today Time with Patient: Less than 30
--- NOTE | 2024-05-29 10:58 | P.DS ---
Providers Date of admission: 05/27/2024 Expected date of discharge: 05/29/24 Attending physician: Ángel Mortensen DO Consults: 05/27/24 15:14 Consult Physician Routine Consulting Provider: Palma Romero Consult Reason/Comments: medical management Do you want consulting provider notified?: Yes Primary care physician: Shelbi Real Hospital Course: Date of admission: 05/27/2024 Date of discharge: 05/29/2024 Admission diagnosis: Status post ACDF C3-C4, C4-C5, C6-C7 Discharge diagnosis: Same Attending physician: Dr. 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 At this point patient has failed conservative treatment measures and has opted to proceed with a elective ACDF C3-C7. Hospital course: Details of patient's surgery can be found in operative report. Patient tolerated the procedure well and was subsequently transported to orthopedic floor. Patient's orthopeidc and medical care was provided daily. Patient had daily laboratory tests performed for evaluation of overall blood counts. Patient had daily physical therapy to include strengthening range of motion as well as education with walker ambulation. Patient was treated with aspirin for their postoperative DVT prophylaxis during their inpatient stay. Patient was noted to have a relatively uneventful postoperative course. Patient reported satisfactory pain control with oral pain medications by postoperative day 1. Patient showed satisfactory progress with physical therapy. Patient moved steadily through the program and had no difficulty meeting the goals by postoperative day 2. Given patient's otherwise satisfactory course and having met physical therapy goals, plan is to discharge patient home on postoperative day 2. Discharge condition/disposition: Patient will be discharged home in stable condition. Discharge medications: Instructions are given on resumption of patient's normal daily medications per primary care recommendation, in addition patient will be prescribed Stanton 5 mg / 325 mg, Flexeril 5 mg, senna S, Duricef 500 mg. Spine Discharge and Recovery Instructions Medications: See medication list All medication refills should be obtained through your primary care doctor or your clinic spine surgeon. Please discuss prescription refills at your follow up appointment. Do not call the hospital for medication refills. Dressing: Leave your dressing in place for a total of 5 days post operatively. Then you may remove your dressing and leave open to air. Keep the area clean and if not able to keep area clean, then cover with sterile gauze and tape. Showering: You may shower 3 days after your procedure allowing soap and water to run over incision. Do not scrub. Do not soak. Blot dry. Follow up: Please confirm a follow up appointment with your surgeon 3 weeks post operatively. Please make an appointment to follow up with your PCP in 1-2 weeks after surgery for evaluation '3 phase, 3-week plan' POST OP WEEKS 1-3 1. Lifting/carrying/pushing/pulling limited to less than 5 pounds. 2. Do not sit for longer than 15 minutes at one time. Get up and walk around. Prolonged sitting is NOT advised. If you lay down, see if you can tolerate laying down on you front (belly side) 3. Walk for periods of 15 minutes = 1 mile but no longer; do it multiple times times each day. 4. Ice your low back after activity. POST OP WEEKS 3-6 1. Lifting limited to less than 20 pounds. 2. Do not sit for longer than 30 minutes at a time. Frequently change positions. Use a sit-to stand workstation or take frequent breaks from sitting if you have returned to work. 3. Walk for 30 minutes each day. If possible, do these three or more times a day POST OP WEEKS 6+ At your 6-week appointment we will give you a physical therapy referral to focus on a core stabilization and strengthening program. You should also work on leg & buttock strengthening, hamstring & quadriceps stretching, and continue a low impact aerobic activity program such as swimming, walking, or riding a stationary bicycle. During the initial 6 weeks after your surgery, you are at the highest risk of re-injuring your spine. You should generally avoid BLT's (bending, lifting and twisting combination motions) and follow the above guidelines to reduce the chance of reinjury. You can anticipate post op appointments in our office at approximately 3 weeks and 6 weeks after your surgery. INCISION CARE: If your incision is not draining you do NOT need to cover it with a dressing. Keep your incision clean, dry and intact. In most cases, we apply skin glue, maria m or sutures to the incision at the time of surgery. This will be like a crust or have the appearance of a scab and will fall off in time on its own. The stitches or maria m need to be removed at 3 weeks post op appointment. You may begin to shower 3 days after surgery (this allows the glue to wilks well). However, please avoid scrubbing the incision site or peeling off any of the skin glue. This will ensure optimal healing of your incision. Also, during this time avoid soaking the incision area in water - this includes swimming pools, hot tubs or baths. No ointments, lotions or oils on the incision until your surgeon allows. Leave maria m, sutures or glue in place. Neurological dysfunction that comes on suddenly can also be a sign of a stroke. Below some common symptoms of a stroke are listed: B - balance difficulty such as sudden onset walking or leaning to one side - NEW E - eye problem such as sudden double vision or trouble seeing on one side - NEW F - Facial weakness or numbness on one side - NEW A - Arm or leg weakness or numbness on one side - NEW S - Slurred speech or difficulty with word finding - NEW T - Time is BRAIN! Call 911 as soon as you recognize these symptoms Diet: Consume a regular diet rich in vegetables and lean protein such as chicken or fish. You should consume in a ratio of approximately 20% fats|40% carbohydrates|40%protein. Vegetables, sweet potatoes, brown rice or quinoa are examples of good carbohydrates. Chips, white bread, cookies and sweets/sugar are examples of bad carbohydrates. Limit your bad carbs, go wild with good carbs. "Life's Simple 7" Guidelines as per [place] [employer] These will help you reclaim your life after surgery and grain miller helper in your recovery, keeping in mind your restrictions. (1) Get Active. Physical activity can help people lose weight, control high blood pressure and cholesterol, feel emotionally better, and sleep better. (2) Control Cholesterol. Avoid a diet high in saturated fat, trans fat, & cholesterol. Limit whole milk & cream, ice cream, butter, egg yolks, processed meats (like sausage and hot dogs), and fatty meats. Choose healthy foods that are low in saturated fat, trans fat and cholesterol which include: Fruits and vegetables, fiber rich grain products (like whole grain pasta and brown rice), lean meat such as chicken, fish, nuts, seeds, and legumes. (3) Eat Better. Eat small portions. Shop at the grocery with a list and do not stray from it. Tips for a healthy diet include: Limit sodium intake to less than 1500mg daily, avoid prepackaged, processed, and fast foods, choose a diet rich in fruits, vegetables, and whole grain, high fiber foods, and limit saturated & cholesterol in your diet. (4) Manage Blood Pressure. If you have high blood pressure, you should have a cuff at home so that you can check your blood pressure regularly. Be sure you have a good cuff. An arm one is generally better than a wrist one. Bring the cuff to a doctor's appointment to validate that the measurements that your cuff are taking are accurate. Take your blood pressure twice daily when you are sitting down and relaxing. Record the numbers in a log and bring this log with you to your doctors' appointments. (5) Lose Weight if your BMI is above 25. A healthy BMI is between 19-25. To calculate Your BMI, you may use a Standard BMI Calculator on the NIH BMI website: <www.nhlbi.nih.gov/guidelines/obesity/BMI/bmicalc.htm>. Weigh oneself daily. If you are overweight, set a goal to lose weight. A pound a week loss if needed is a good target. (6) Reduce Blood Sugar. Limit foods and liquids with "added sugars." (Added sugars include sucrose, fructose, glucose, maltose, dextrose, high fructose corn syrup, corn syrup, concentrated fruit juice and honey). (7) Stop Smoking. If you smoke, quitting smoking is one of the best things that you can do for your health. Smoking increases your risk of heart attack, stroke, and peripheral vascular disease, which is a build-up of plaque in your arteries. Please discard all the cigarettes and lighters in your house. Have a plan for what you will do when you have the urge to smoke. Direct and second- hand smoke shortens your life as well as the lives of your family, friends and others around you. For your health and the health of those around you, please consider quitting! Proper Bending Body Mechanics: Maintain a wide stance with one foot slightly in front of the other. Keep your back straight. Bend utilizing the strength in your hips and knees. Do not bend at the waist. Maintain the lifted object at your waist-level close to your body. Avoid lifting weight that causes immediately pain or pain anywhere in the body afterwards. Smoking/Nicotine If there was ever one thing that you could do to increase your overall health, decrease your risk of cardiovascular problems by about 39% the second you make the choice, it is to STOP SMOKING. Your body's most instant gratification is the second you stop smoking. We have all heard the studies, read the articles but it is true, smoking is extremely bad for your overall health, and moreover it is detrimental to your bone health. Nicotine, IN ANY FORM, kills bone cells, prevents your body from healing fractures, and significantly prolongs healing after surgery. In spine surgery specifically, it increases your risk of not healing your bones to create a fusion and increases your risk of having a revision surgery due to this up to 60%. I know it is hard. I know it feels impossible. But there are ways. Take control of your life. We are here to help you through it. And when you are ready, ask us and we can direct you to help if you desire. Use the START Plan to Quit Smoking (please visit the Helpguide.org website listed below for more information): S = Set a quit date. Choose a date within the next 2 weeks, so you have enough time to prepare without losing your motivation to quit. If you mainly smoke at work, quit on the weekend, so you have a few days to adjust to the change. T = Tell family, friends, and co-workers that you plan to quit. Let your friends and family in on your plan to quit smoking and tell them you need their support and encouragement to stop. Look for a quit dilan who wants to stop smoking as well. You can help each other get through the rough times. A = Anticipate and plan for the challenges you'll face while quitting. Most people who begin smoking again do so within the first 3 months. You can h elp yourself make it through by preparing ahead for common challenges, such as nicotine withdrawal and cigarette cravings. R = Remove cigarettes and other tobacco products from your home, car, and work. Throw away all your cigarettes (no emergency pack!), lighters, ashtrays, and matches. Wash your clothes and freshen up anything that smells like smoke. Shampoo your car, clean your drapes and carpet, and steam your furniture. T = Talk to your doctor about getting help to quit. Your doctor can prescribe medication to help with withdrawal and suggest other alternatives. If you can't see a doctor, you can get many products over the counter at your local pharmacy or grocery store, including the nicotine patch, nicotine lozenges, and nicotine gum. Resources for Quitting Smoking: <https://www.[place].gov/documents/[facility]/Quit_Tobacco_Resources_for_patients_313 480_7.pdf> Supplementation: Take recommended dosages of Vitamin D and Calcium to help fortify your bones and help them to heal. See your health maintenance packet for dosages and recommended levels. DVT/VTE prophylaxis: You will be given compression stockings from the hospital. Wear these daily for the first two weeks after surgery. You may take them off at night. You may be prescribed a medication to help thin your blood. Take this as directed. If you are not prescribed this medication, early and frequent ambulation has been shown to be the best prophylaxis to deep vein thrombosis and sequelae related to this event. Procedures: ACDF C3-C4, C4-C5, C6-C7 Patient Condition at Discharge: Good Plan - Discharge Summary Discharge Rx Participant: Yes New Discharge Prescriptions: New cefaDROXiL [Duricef] 500 mg PO Q12HR 5 Days #10 cap Cyclobenzaprine [Flexeril] 5 mg PO TID PRN #30 tablet PRN Reason: Muscle Spasm HYDROcodone/APAP 5-325MG [Stanton 5-325] 1 tab PO Q6HR PRN #28 tab PRN Reason: Pain Sennosides/Docusate Sodium [Senna-S 8.6-50 mg Tablet] 2 each PO DAILY PRN #30 tablet PRN Reason: Constipation No Action Levothyroxine Sodium [Synthroid] 50 mcg PO DAILY Lovastatin [Mevacor] 40 mg PO HS Lansoprazole [Prevacid] 30 mg PO DAILY Escitalopram [Lexapro] 20 mg PO DAILY buPROPion XL [Wellbutrin Xl] 150 mg PO DAILY Metoprolol Tartrate [Lopressor] 25 mg PO BID Stool Softener 1 tab PO BID Calcium Carbonate/Vitamin D3 [Caltrate 600 Plus D3 20 Mcg (800 Iu)] 600 mg PO DAILY Cholecalciferol (Vitamin D3) [Vitamin D3 (5000 Iu)] 5,000 unit PO DAILY Aspirin 81 mg PO DAILY L.acidoph,Paracasei, B.lactis [Probiotic] 1 each PO DAILY Cranberry Fruit Extract [Cranberry] 1 dose PO DAILY Discharge Medication List Escitalopram [Lexapro] 20 mg PO DAILY 06/24/13 [History] Lansoprazole [Prevacid] 30 mg PO DAILY 06/24/13 [History] Levothyroxine Sodium [Synthroid] 50 mcg PO DAILY 06/24/13 [History] Lovastatin [Mevacor] 40 mg PO HS 06/24/13 [History] Aspirin 81 mg PO DAILY 06/07/20 [History] Calcium Carbonate/Vitamin D3 [Caltrate 600 Plus D3 20 Mcg (800 Iu)] 600 mg PO DAILY 06/07/20 [History] Cholecalciferol (Vitamin D3) [Vitamin D3 (5000 Iu)] 5,000 unit PO DAILY 06/07/20 [History] L.acidoph,Paracasei, B.lactis [Probiotic] 1 each PO DAILY 06/07/20 [History] Metoprolol Tartrate [Lopressor] 25 mg PO BID 06/07/20 [History] Stool Softener 1 tab PO BID 06/07/20 [History] buPROPion XL [Wellbutrin Xl] 150 mg PO DAILY 06/07/20 [History] Cranberry Fruit Extract [Cranberry] 1 dose PO DAILY 05/25/24 [History] Cyclobenzaprine [Flexeril] 5 mg PO TID PRN #30 tablet 05/29/24 [Rx] HYDROcodone/APAP 5-325MG [Stanton 5-325] 1 tab PO Q6HR PRN #28 tab 05/29/24 [Rx] Sennosides/Docusate Sodium [Senna-S 8.6-50 mg Tablet] 2 each PO DAILY PRN #30 tablet 05/29/24 [Rx] cefaDROXiL [Duricef] 500 mg PO Q12HR 5 Days #10 cap 05/29/24 [Rx] Follow up Appointment(s)/Referral(s): Karen Pham NPC [Nurse Practitioner] - 2 Weeks Activity/Diet/Wound Care/Special Instructions: Spine Discharge and Recovery Instructions Medications: See medication list All medication refills should be obtained through your primary care doctor or your clinic spine surgeon. Please discuss prescription refills at your follow up appointment. Do not call the hospital for medication refills. Dressing: Leave your dressing in place for a total of 5 days post operatively. Then you may remove your dressing and leave open to air. Keep the area clean and if not able to keep area clean, then cover with sterile gauze and tape. Showering: You may shower 3 days after your procedure allowing soap and water to run over incision. Do not scrub. Do not soak. Blot dry. Follow up: Please confirm a follow up appointment with your surgeon 3 weeks post operatively. Please make an appointment to follow up with your PCP in 1-2 weeks after surgery for evaluation '3 phase, 3-week plan' POST OP WEEKS 1-3 1. Lifting/carrying/pushing/pulling limited to less than 5 pounds. 2. Do not sit for longer than 15 minutes at one time. Get up and walk around. Prolonged sitting is NOT advised. If you lay down, see if you can tolerate laying down on you front (belly side) 3. Walk for periods of 15 minutes = 1 mile but no longer; do it multiple times times each day. 4. Ice your low back after activity. POST OP WEEKS 3-6 1. Lifting limited to less than 20 pounds. 2. Do not sit for longer than 30 minutes at a time. Frequently change positions. Use a sit-to stand workstation or take frequent breaks from sitting if you have returned to work. 3. Walk for 30 minutes each day. If possible, do these three or more times a day POST OP WEEKS 6+ At your 6-week appointment we will give you a physical therapy referral to focus on a core stabilization and strengthening program. You should also work on leg & buttock strengthening, hamstring & quadriceps stretching, and continue a low impact aerobic activity program such as swimming, walking, or riding a stationary bicycle. During the initial 6 weeks after your surgery, you are at the highest risk of re-injuring your spine. You should generally avoid BLT's (bending, lifting and twisting combination motions) and follow the above guidelines to reduce the chance of reinjury. You can anticipate post op appointments in our office at approximately 3 weeks and 6 weeks after your surgery. INCISION CARE: If your incision is not draining you do NOT need to cover it with a dressing. Keep your incision clean, dry and intact. In most cases, we apply skin glue, maria m or sutures to the incision at the time of surgery. This will be like a crust or have the appearance of a scab and will fall off in time on its own. The stitches or maria m need to be removed at 3 weeks post op appointment. You may begin to shower 3 days after surgery (this allows the glue to wilks well). However, please avoid scrubbing the incision site or peeling off any of the skin glue. This will ensure optimal healing of your incision. Also, during this time avoid soaking the incision area in water - this includes swimming pools, hot tubs or baths. No ointments, lotions or oils on the incision until your surgeon allows. Leave maria m, sutures or glue in place. Neurological dysfunction that comes on suddenly can also be a sign of a stroke. Below some common symptoms of a stroke are listed: B - balance difficulty such as sudden onset walking or leaning to one side - NEW E - eye problem such as sudden double vision or trouble seeing on one side - NEW F - Facial weakness or numbness on one side - NEW A - Arm or leg weakness or numbness on one side - NEW S - Slurred speech or difficulty with word finding - NEW T - Time is BRAIN! Call 911 as soon as you recognize these symptoms Diet: Consume a regular diet rich in vegetables and lean protein such as chicken or fish. You should consume in a ratio of approximately 20% fats|40% carbohydrates|40%protein. Vegetables, sweet potatoes, brown rice or quinoa are examples of good carbohydrates. Chips, white bread, cookies and sweets/sugar are examples of bad carbohydrates. Limit your bad carbs, go wild with good carbs. "Life's Simple 7" Guidelines as per [place] [employer] These will help you reclaim your life after surgery and grain miller helper in your recovery, keeping in mind your restrictions. (1) Get Active. Physical activity can help people lose weight, control high blood pressure and cholesterol, feel emotionally better, and sleep better. (2) Control Cholesterol. Avoid a diet high in saturated fat, trans fat, & cholesterol. Limit whole milk & cream, ice cream, butter, egg yolks, processed meats (like sausage and hot dogs), and fatty meats. Choose healthy foods that are low in saturated fat, trans fat and cholesterol which include: Fruits and vegetables, fiber rich grain products (like whole grain pasta and brown rice), lean meat such as chicken, fish, nuts, seeds, and legumes. (3) Eat Better. Eat small portions. Shop at the grocery with a list and do not stray from it. Tips for a healthy diet include: Limit sodium intake to less than 1500mg daily, avoid prepackaged, processed, and fast foods, choose a diet rich in fruits, vegetables, and whole grain, high fiber foods, and limit saturated & cholesterol in your diet. (4) Manage Blood Pressure. If you have high blood pressure, you should have a cuff at home so that you can check your blood pressure regularly. Be sure you have a good cuff. An arm one is generally better than a wrist one. Bring the cuff to a doctor's appointment to validate that the measurements that your cuff are taking are accurate. Take your blood pressure twice daily when you are sitting down and relaxing. Record the numbers in a log and bring this log with you to your doctors' appointments. (5) Lose Weight if your BMI is above 25. A healthy BMI is between 19-25. To calculate Your BMI, you may use a Standard BMI Calculator on the NIH BMI website: <www.nhlbi.nih.gov/guidelines/obesity/BMI/bmicalc.htm>. Weigh oneself daily. If you are overweight, set a goal to lose weight. A pound a week loss if needed is a good target. (6) Reduce Blood Sugar. Limit foods and liquids with "added sugars." (Added sugars include sucrose, fructose, glucose, maltose, dextrose, high fructose corn syrup, corn syrup, concentrated fruit juice and honey). (7) Stop Smoking. If you smoke, quitting smoking is one of the best things that you can do for your health. Smoking increases your risk of heart attack, stroke, and peripheral vascular disease, which is a build-up of plaque in your arteries. Please discard all the cigarettes and lighters in your house. Have a plan for what you will do when you have the urge to smoke. Direct and second- hand smoke shortens your life as well as the lives of your family, friends and others around you. For your health and the health of those around you, please consider quitting! Proper Bending Body Mechanics: Maintain a wide stance with one foot slightly in front of the other. Keep your back straight. Bend utilizing the strength in your hips and knees. Do not bend at the waist. Maintain the lifted object at your waist-level close to your body. Avoid lifting weight that causes immediately pain or pain anywhere in the body afterwards. Smoking/Nicotine If there was ever one thing that you could do to increase your overall health, decrease your risk of cardiovascular problems by about 39% the second you make the choice, it is to STOP SMOKING. Your body's most instant gratification is the second you stop smoking. We have all heard the studies, read the articles but it is true, smoking is extremely bad for your overall health, and moreover it is detrimental to your bone health. Nicotine, IN ANY FORM, kills bone cells, prevents your body from healing fractures, and significantly prolongs healing after surgery. In spine surgery specifically, it increases your risk of not healing your bones to create a fusion and increases your risk of having a revision surgery due to this up to 60%. I know it is hard. I know it feels impossible. But there are ways. Take control of your life. We are here to help you through it. And when you are ready, ask us and we can direct you to help if you desire. Use the START Plan to Quit Smoking (please visit the Helpguide.org website listed below for more information): S = Set a quit date. Choose a date within the next 2 weeks, so you have enough time to prepare without losing your motivation to quit. If you mainly smoke at work, quit on the weekend, so you have a few days to adjust to the change. T = Tell family, friends, and co-workers that you plan to quit. Let your friends and family in on your plan to quit smoking and tell them you need their support and encouragement to stop. Look for a quit dilan who wants to stop smoking as well. You can help each other get through the rough times. A = Anticipate and plan for the challenges you'll face while quitting. Most people who begin smoking again do so within the first 3 months. You can help yourself make it through by preparing ahead for common challenges, such as nicotine withdrawal and cigarette cravings. R = Remove cigarettes and other tobacco products from your home, car, and work. Throw away all your cigarettes (no emergency pack!), lighters, ashtrays, and matches. Wash your clothes and freshen up anything that smells like smoke. Shampoo your car, clean your drapes and carpet, and steam your furniture. T = Talk to your doctor about getting help to quit. Your doctor can prescribe medication to help with withdrawal and suggest other alternatives. If you can't see a doctor, you can get many products over the counter at your local pharmacy or grocery store, including the nicotine patch, nicotine lozenges, and nicotine gum. Resources for Quitting Smoking: <https://www.[place].gov/documents/[facility]/Quit_Tobacco_Resources_for_patients_313 480_7.pdf> Supplementation: Take recommended dosages of Vitamin D and Calcium to help fortify your bones and help them to heal. See your health maintenance packet for dosages and recommended levels. DVT/VTE prophylaxis: You will be given compression stockings from the hospital. Wear these daily for the first two weeks after surgery. You may take them off at night. You may be prescribed a medication to help thin your blood. Take this as directed. If you are not prescribed this medication, early and frequent ambulation has been shown to be the best prophylaxis to deep vein thrombosis and sequelae related to this event. Discharge Disposition: HOME WITH HOME HEALTH SERVICES
[2024-05-29 11:08] LABS: Basophils # (A) 0.03 X 10*3/uL (0.00-0.10); Basophils % (A) 0.2 %; Eosinophils # (A) 0.01 X 10*3/uL (0.04-0.35); Eosinophils % (A) 0.1 %; HCT 33.4 % (37.2-46.3); Lymphocytes # (A) 1.18 X 10*3/uL (0.90-5.00); Lymphocytes % (A) 9.2 %; MCH 30.8 pg (27.0-32.0); MCHC 32.9 g/dL (32.0-37.0); MCV 93.6 FL (80.0-97.0); Mean Platelet Volume 9.7 FL (9.5-12.2); Monocytes # (A) 1.04 X 10*3/uL (0.20-1.00); Monocytes % (A) 8.1 %; NRBC Per 100 WBC 0 X 10*3/uL (0.00-0.01); Neutrophils # (A) 10.52 X 10*3/uL (1.80-7.70); Neutrophils % (A) 81.9 %; Platelet Count 214 X 10*3/uL (140-440); RBC 3.57 X 10*6/uL (4.10-5.20); RDW 12.8 % (11.5-14.5); WBC 12.84 X 10*3/uL (4.50-10.00)
[2024-05-29 11:11] LABS: ALT 17 U/L (8-44); AST 29 U/L (13-35); Albumin/Globulin Ratio 2.35 Ratio (1.60-3.17); Alkaline Phosphatase 57 U/L (41-126); BUN/Creat Ratio 18.33 Ratio (12.00-20.00); Calcium 9.3 mg/dL (8.7-10.3); Carbon Dioxide 23.4 mmol/L (21.6-31.8); Chloride 93 mmol/L (96-109); Globulin 1.7 g/dL (1.6-3.3); Glucose 104 mg/dL (70-110); Potassium 4.2 mmol/L (3.5-5.5); Sodium 130 mmol/L (135-145); Total Bilirubin 0.9 mg/dL (0.3-1.2); Total Protein 5.7 g/dL (6.2-8.2)
[2024-05-29] MEDS ORDERED: amLODIPine 5 MG TAB PO SCH (21:00)
--- NOTE | 2024-05-30 08:23 | P.OP ---
Date of Procedure: 05/27/24 Preoperative Diagnosis: 1. C3-7 SPONDYLOSIS 2. 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 MYELOPATHY 4. NECK PAIN 5. B/UE WEAKNESS Postoperative Diagnosis: 1. C3-7 SPONDYLOSIS 2. 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 MYELOPATHY 4. NECK PAIN 5. B/UE WEAKNESS Procedure(s) Performed: 1. C3-4 ANTERIOR CERVICAL ARTHRODESIS 2. C4-5 ANTERIOR CERVICAL ARTHRODESIS 3. C6-7 ANTERIOR CERVICAL ARTHRODESIS 4. C3-4, C4-5, C6-7 ANTERIOR INSTRUMENTATION 5. C3-4, C4-5, C6-7 INSERTION OF BIOMECHANICAL DEVICE CAGES USE OF IONM Implants: -GLOBUS COALLITION CAGES, PLATE AND ACHOR SYSTEM Anesthesia: GETA Surgeon: Ángel Mortensen Director Of Campus Recreation #1: Ezequiel Power (WAS PRESENT AND ASSISTED WITH ALL ASPECTS OF THE CASE FROM POSITION TO DRESSING PLACEMENT) Estimated Blood Loss (ml): 50 IV fluids (ml): 1,200 Urine output (ml): 250 Pathology: none sent Condition: stable Disposition: PACU Indications for Procedure: LUAN Cowan, a 79-year-old female, presents for preoperative evalu ation for planned C3-7 anterior cervical discectomy and fusion (ACDF) due to severe cervical spondylosis with stenosis and radiculopathy. The patient demonstrates significant upper extremity weakness, bilateral paresthesias, and positive Marrufo's sign bilaterally. Imaging reveals C5-6 autofusion with Klippel-Feil syndrome, C3-7 moderate to severe spondylosis with degenerative disc herniations, and cervical lordosis flattening. Previous conservative management has failed to provide adequate symptom relief. Patient has been counseled extensively regarding surgical risks and benefits, and has elected to proceed with C3-7 ACDF. Preoperative clearance is pending from PCP. Follow-up is scheduled for postoperative evaluation. VAS pain score is currently 6/10. Description of Procedure: C3-7 ACDF The patient was seen and examined in the preoperative area. All preoperative protocols were followed. Informed consent was obtained, risks and benefits of the procedure were discussed at length. Risks including bleeding infection damage to the surrounding tissue and risk of reoperation were discussed with the patient. Risk of anesthesia up to and including was discussed with the patient. These are outlined in the risk review. They were willing to accept these risks and all the risks of surgery. The patient was given a weight-based dose of antibiotics in the form of 2 g Ancef. The patient was seen and evaluated by the anesthesia team who deemed them fit for surgery. The site was marked, the patient was willing to proceed with the procedure. The patient was transferred to the operative suite by the Department of anesthesia. They were then drifted off to sleep by the department anesthesia and GETA was performed. The patient tolerated this well. Cerna catheter was placed by nursing staff, a-traumatically. Once confirmation of lines and ventilation the patient was transferred to a Supine Juancarlos table very carefully. All bony prominences including wrists, elbows, axilla, chest, hips, and thighs, and feet were padded very well. Special attention was paid to the genitalia, and these were padded accordingly. SCDs were placed on bilateral lower extremities and were connected. Arms were well padded and placed at their side thumbs up. Once in position, again we confirmed good ventilation capabilities and that lines were running appropriately. The patients Cervical spine was then exposed. 1010s were placed outlining the incision site. Standard alcohol was used to clean the incision site and allowed to dry. C-arm was used to bio-hiar the patient and confirm level for incision which was marked with a skin marker. Operative briefing was performed with all teams and everyone in agreement to proceed. The patient was then prepped and draped in a normal sterile fashion. Timeout was then performed, and all parties agreed with the procedure to be performed. Transverse skin incision was then made on the RIGHT side of the patient's neck 3 cm and dissection taken down to the platysma which was split transversely. Sub platysma flap was made, and interval identified between SCM and medial structures. Omohyoid was visualized and protected. Blunt dissection taken down to the anterior cervical fascia which was identified. Blunt probe was then placed and lateral image taken which confirmed levels for operation. These lev els were then marked with a bovi. Subperiosteal dissection of the longissimus muscles were then done over these levels identifying uncovertebral joints bilaterally. The retractor was then placed deep to these muscles and held in place with a bed arm. Starting at C6-7, Henry pins were placed into C6 and C7 and gentle distraction taken out over the levels. Shameka rongeur used to remove disc material. Operating microscope brought in for visualization. Complete discectomy performed at this level with curette, rongure and pituitary. High speed dina used to remove osteophytes anteriorly and posteriorly until PLL was identified. 6-0 up curette then used to identify the canal and resect the PLL. 2-0 and 3-0 Kerrison used then to remove PLL and disc herniation and performed b/l foraminotomies. Once good decompression was accomplished, meticulous hemostasis was performed. Sizers were then placed under lateral fluoroscopy until the desired height and lordosis. Cage was then selected, packed with autograft and allograft and placed under lateral imaging. Once in good position it was tested and stable. Motors run before and after cage placement were stable. The wound was irrigated, and autograft placed lateral to the cage anteriorly for fusion. The caspar pin was then removed from C7 and placed into C5. Gentle distraction taken out over C5-6 now. Complete discectomy done at C5-6 as described including decompression, b/l foraminotomies and PLL resection. Burring of endplates was minimal, osteophytes removed as described. Spacers were then sized and placed under lateral imaging. Cage selected, packed with graft and placed under lateral images. Once in position, meticulous hemostasis performed, and motors remained stable before and after cage placement. AP image confirmed good placement of cages. The wound was irrigated. The caspar pin was then removed from C6 and placed into C4. Gentle distraction taken out over C4-5 now. Complete discectomy done at C4-5 as described including decompression, b/l foraminotomies and PLL resection. Burring of endplates was minimal, osteophytes removed as described. Spacers were then sized and placed under lateral imaging. Cage selected, packed with graft and placed under lateral images. Once in position, meticulous hemostasis performed, and motors remained stable before and after cage placement. AP image confirmed good placement of cages. The wound was irrigated. The caspar pin was removed from C5 and placed in C3. Gentle distraction taken out over C3-4 now. Complete discectomy done at C3-4 as described including decompression, b/l foraminotomies and PLL resection. Burring of endplates was minimal, osteophytes removed as described. Spacers were then sized and placed under lateral imaging. Cage selected, packed with graft and placed under lateral images. Once in position, meticulous hemostasis performed, and motors remained stable before and after cage placement. AP image confirmed good placement of cages. The wound was irrigated. Anterior instrumentation was then done at each level ensuring good purchase of anchors and screws. All locking mechanisms were set, and all screws had good purchase. Final AP and lateral images taken confirmed good placement of hardware and good reduction and anabaptism of height. The wound was then irrigated copiously with NSS. Surgicel placed deep in the wound. A deep drain placed out a separate incision and sewed into place. Layered closure then performed with 3-0 Vicryl in the platysma and subQ tissue. 4-0 Strata fix in the subcuticular tissue. The wound was then cleaned, and dried and skin glue placed. Once glue dried on Opifoam was placed. The patient was then transferred back to their hospital bed a-traumatically. The drain continued to hold suction. They were placed in a soft collar. They were then awakened by the department of anesthesia having tolerated the procedure well without complications.
== END 2024-05-29 14:30 | disposition home health service (06) ==
LOC: OR 10:15 → 4SSUR 15:41 → OR 05-29 14:30
PROVIDERS: ATTEND Orthopaedic Surgery
DX: M47.12 Other spondylosis with myelopathy, cervical region (principal); M50.022 Cervical disc disorder at C5-C6 level with myelopathy; I10 Essential (primary) hypertension; E03.9 Hypothyroidism, unspecified; E78.5 Hyperlipidemia, unspecified; F32.A Depression, unspecified; F17.210 Nicotine dependence, cigarettes, uncomplicated; Q76.1 Klippel-Feil syndrome; Z86.73 Personal history of transient ischemic attack (TIA), and cerebral infarction without residual deficits; Z85.828 Personal history of other malignant neoplasm of skin; Z01.818 Encounter for other preprocedural examination; Z90.89 Acquired absence of other organs; Z98.1 Arthrodesis status; Z79.890 Hormone replacement therapy; Z79.82 Long term (current) use of aspirin; Z79.899 Other long term (current) drug therapy
CPT/HCPCS: 22551; 22552; 22846; 22853; 20930; 20936; 97162; 80053 ×2; 80048; 85025 ×3; 85610; 85730; 72040; 72125; C1713; J2250; J0330; J0360 ×3; J1100; J0690 ×2; J2405 ×2; J2003; J3010; J2704; J1171 ×3; J1596

== ENCOUNTER → 2024-07-31 | Outpatient (CLI) | payer MEDICARE ==
--- NOTE | 2024-07-31 11:50 | MR ---
MR MRCP INDICATION: Patient age:Female; 79 years old; Reason for study: Z87.19 PERSONAL HISTORY OF OTHER DISEASES OF THE DIGESTIVE S; [facility]. COMPARISON: Ultrasound liver 10/17/2020. TECHNIQUE: Multi planar, T2-weighted imaging with and without fat saturation and chemical shift imag ing was performed of the abdomen. Then, heavily T2 weighted imaging was utilized in order to study th e biliary system. Maximum intensity projection images were reconstructed from the original data of t he biliary tree. No Gadolinium given. FINDINGS: MRCP: The intrahepatic ducts have a normal appearance. The common bile duct at the level of the brown creatic head measures 8 mm in size. The common hepatic duct measures 13 mm in size. No filling defect s identified. There is normal tapering at the pancreatic head. Pancreatic body 12 mm thin-walled T2 h yperintense cystic lesion. Additional pancreatic head 6 mm T2 hyperintense cystic lesion. None of the se lesions demonstrate mural nodularity. The pancreatic duct is mildly dilated measuring up to 7 mm at the pancreatic head. No filling defect s identified. Normal caliber pancreatic duct involving the body and tail. Single gallstone measuring to 7 mm identified with the gallbladder. No wall thickening or surrounding fluid. Abdomen: The spleen, adrenal glands, and pancreas have a normal noncontrast appearance. Few thin-wall ed T2 hyperintense simple appearing cysts. There is a posterior right hepatic lobe thin-walled cyst w ith thin septation measuring up to 1.8 cm. Right kidney surgically absent. No hydronephrosis involvin g the left kidney. Subcentimeter thin-walled left renal lower pole cyst. No follow up recommended. Sc attered colonic diverticula without evidence for acute diverticulitis. IMPRESSION: 1. Couple of pancreatic cystic lesions without mural nodularity. 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 Recommend follow-up MR abdomen/MRCP with IV contrast in one yea r to assess for stability. 2. Mildly dilated common bile duct and common hepatic duct without intrahepatic biliary ductal dilat ation. The common bile duct is normal caliber for patient's age. Additionally there is mild dilatatio n of the main pancreatic duct. No filling defect or stricture identified. Consider direct visualizati on. 3. Cholelithiasis. 4. Right kidney is surgically absent. 5. Colonic diverticulosis without visualized acute diverticulitis. [facility], , 07/31/2024 11:47 AM
== END | disposition home or self-care (01) ==
LOC: RADMRIMAIN 08:07
PROVIDERS: ATTEND Internal Medicine Gastroenterology
DX: K86.2 Cyst of pancreas (principal); K80.20 Calculus of gallbladder without cholecystitis without obstruction; Z90.5 Acquired absence of kidney; K57.30 Diverticulosis of large intestine without perforation or abscess without bleeding; Z87.19 Personal history of other diseases of the digestive system; K83.8 Other specified diseases of biliary tract; K86.89 Other specified diseases of pancreas
CPT/HCPCS: 74181

== ENCOUNTER 2024-08-19 05:54 | Day surgery (SDC) | payer MEDICARE ==
[~2024-08-19 05:54] MED LIST changes: -LIDOCAINE 1% (10MG/ML) FOR IV START INTRADERMA PRN; -MIDAZOLAM 2 MG/2 ML VIAL IV PRN; -TRANEXAMIC 1,000 MG/100ML-NACL 1,000 MG in SALINE 1 100ML.BAG IVPB PRN; -fentaNYL (PF) 50 MCG/ML 2 ML AMP IVP PRN
[2024-08-19] MEDS ORDERED: INDOCYANINE GREEN 25 MG VIAL IV STA (06:45)
--- NOTE | 2024-08-19 06:47 | P.GSHP ---
History of Present Illness H&P Date: 08/19/24 CHIEF COMPLAINT: Cholecystitis with gallstone pancreatitis HISTORY OF PRESENT ILLNESS: The patient is a 23-year-old female who presents with history of epigastric including right upper quadrant abdominal pain including gallstone pancreatitis. She underwent diagnostic studies for her gallbladder. Separately her clinical picture was consistent with cholecystitis. Now she presents for surgical intervention. PAST MEDICAL HISTORY: Please see list PAST SURGICAL HISTORY: Please see list MEDICATIONS: Please see list ALLERGIES: Please see list SOCIAL HISTORY: Please see list FAMILY HISTORY: Please see list REVIEW OF ORGAN SYSTEMS: CONSTITUTIONAL: No reports of fevers or chills. HEENT: Denies any troubles with the vision or hearing. ENDOCRINE: No reports of hypothyroidism. No diabetes. RESPIRATORY: No recent pneumonias. CARDIOVASCULAR: Denies chest pain or palpitations GI: No blood in stools or constipation. MUSCULOSKELETAL: Has occasional joint pain including back pain. NEURO: No seizure disorders or headaches. No recent stroke. PSYCH: No depression or suicidal ideation. GENITOURINARY: No active blood in urine. No urinary hesitancy. HEMATOLOGIC: No personal or family history of DVTs or pulmonary emboli. SKIN: No skin cancer. PHYSICAL EXAM: VITAL SIGNS: Afebrile vital signs stable GENERAL: Well-developed pleasant in no acute distress. HEENT: No scleral icterus. Extraocular movements grossly intact. Moist buccal mucosa. NECK: Supple without lymphadenopathy. CHEST: Unlabored respirations. Equal bilateral excursions. CARDIOVASCULAR: Regular rate regular rhythm rhythm. Distal 2+ pulses. ABDOMEN: Soft, nondistended. Tender along the epigastrium and right upper quadrant. MUSCULOSKELETAL: No clubbing, cyanosis, or edema. NEURO: Cranial nerves II to XII within normal limits. No focal or lateralizing signs. PSYCH: Alert and oriented to person, place and time. SKIN: Well-perfused good skin turgor. ASSESSMENT: 1. Epigastric and right upper quadrant abdominal pain 2. Chronic cholecystitis 3. Symptomatic gallstones. 4. Gallstones pancreatitis PLAN: 1. Will need a robotic cholecystectomy possible open. Benefits and risks were described. 2. Heparin for DVT prophylaxis 5000 units. 3. Antibiotic prophylaxis. 4. CBC and CMP on day of procedure 5. Non-narcotic pre and post op pain management reviewed. 6. Indocyanine green for biliary imaging. 7. She is elevated risk due to gallstone pancreatitis. Past Medical History Past Medical History: Cancer, CVA/TIA, GERD/Reflux, Hyperlipidemia, Hypertension, Osteoarthritis (OA), Thyroid Disorder Additional Past Medical History / Comment(s): hx Degenerative disc in neck. 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 has only left kidney History of Any Multi-Drug Resistant Organisms: None Reported Past Surgical History: Breast Surgery, Section, Orthopedic Surgery, Tonsillectomy Additional Past Surgical History / Comment(s): R nephrectomy as teenager, one kidney was non fuctioning, skin cancer removed from nose, B/L carpal tunnel, B/L cataracts, neck surgery (C3-7 decompression and fusion). Past Anesthesia/Blood Transfusion Reactions: No Reported Reaction Additional Past Anesthesia/Blood Transfusion Reaction / Comment(s): No hx of a blood transfusion Smoking Status: Former smoker - Past Family History Brother(s) Family Medical History: Cancer Father Family Medical History: Deep Vein Thrombosis (DVT) Additional Family Medical History / Comment(s): developed blood clot after gallbladder surgery. Medications and Allergies Home Medications Medication Instructions Recorded Confirmed Type Escitalopram [Lexapro] 20 mg PO DAILY 06/24/13 08/16/24 History Lansoprazole [Prevacid] 30 mg PO DAILY 06/24/13 08/16/24 History Levothyroxine Sodium [Synthroid] 50 mcg PO DAILY 06/24/13 08/16/24 History Lovastatin [Mevacor] 40 mg PO HS 06/24/13 08/16/24 History Aspirin 81 mg PO DAILY 06/07/20 08/16/24 History Calcium Carbonate/Vitamin D3 600 mg PO DAILY 06/07/20 08/16/24 History [Caltrate 600 Plus D3 20 Mcg (800 Iu)] Cholecalciferol (Vitamin D3) 5,000 unit PO DAILY 06/07/20 08/16/24 History [Vitamin D3 (5000 Iu)] L.acidoph,Paracasei, B.lactis 1 each PO DAILY 06/07/20 08/16/24 History [Probiotic] Metoprolol Tartrate [Lopressor] 25 mg PO BID 06/07/20 08/16/24 History buPROPion XL [Wellbutrin XL] 150 mg PO DAILY 06/07/20 08/16/24 History Cranberry Fruit Extract [Cranberry] 1 dose PO DAILY 05/25/24 08/16/24 History Cyclobenzaprine [Flexeril] 5 mg PO TID PRN #30 tablet 05/29/24 08/16/24 Rx amLODIPine [Norvasc] 5 mg PO BID 30 Days #60 tab 05/29/24 08/16/24 Rx Unk Miralax 1 dose PO DIRECTED 08/16/24 08/16/24 History Allergies Allergy/AdvReac Type Severity Reaction Status Date / Time No Known Allergies Allergy Verified 08/16/24 14:30
[2024-08-19] MEDS: IV FLUID CONTINUATION 1,000 ML IV ONE ×2 (06:54→10:16)
[2024-08-19] MEDS: ONDANSETRON 4 MG/2 ML VIAL IVP ONE (07:15)
[2024-08-19] MEDS: LACTATED RINGERS 1,000 ML IV SCH (07:15)
[2024-08-19] MEDS: DEXAMETHASONE SOD PHOSPHATE 4 MG/ML 1 ML VIAL IV ONE (07:15)
[2024-08-19] MEDS: ACETAMINOPHEN TAB 500 MG TAB PO PRN (07:15)
[2024-08-19] MEDS: HEPARIN SODIUM,PORCINE 5,000 UNIT/ML 1 ML VIAL SQ PRN (07:16)
[2024-08-19 07:19] LABS: Basophils # (A) 0.07 10*3/uL (0.00-0.10); Basophils % (A) 0.9 %; Eosinophils % (A) 2.6 %; HCT 37.2 % (37.2-46.3); HGB 12.8 g/dL (12.0-15.0); Lymphocytes # (A) 2.49 10*3/uL (0.90-5.00); Lymphocytes % (A) 32.5 %; MCH 32.1 pg (27.0-32.0); MCHC 34.4 g/dL (32.0-37.0); MCV 93.2 fL (80.0-97.0); Mean Platelet Volume 8.8 fL (9.5-12.2); Monocytes # (A) 0.68 10*3/uL (0.20-1.00); Monocytes % (A) 8.9 %; Platelet Count 245 10*3/uL (140-440); RBC 3.99 10*6/uL (4.10-5.20); RDW 12.5 % (11.5-14.5); WBC 7.65 10*3/uL (4.50-10.00)
[2024-08-19 07:37] LABS: ALT 18 U/L (4-34); AST 30 U/L (14-36); African American GFR (CKD) 82 (>60 ml/min/1.73 sqM); Albumin 4.9 g/dL (3.5-5.0); Alkaline Phosphatase 66 U/L (38-126); Anion Gap 8 mmol/L; Blood Urea Nitrogen 19 mg/dL (7-17); Calcium 10.5 mg/dL (8.4-10.2); Carbon Dioxide 27 mmol/L (22-30); Chloride 100 mmol/L (98-107); Glucose 82 mg/dL (74-99); Non-African American GFR(CKD) 72 (>60 ml/min/1.73 sqM); Potassium 4.4 mmol/L (3.5-5.1); Sodium 135 mmol/L (137-145); Total Bilirubin 0.5 mg/dL (0.2-1.3); Total Protein 7.3 g/dL (6.3-8.2)
[2024-08-19] MEDS ORDERED: MIDAZOLAM 2 MG/2 ML VIAL ONE (07:40)
[2024-08-19] MEDS ORDERED: ROCURONIUM 10 MG/ML (5 ML VIAL) IV ONE (07:40)
[2024-08-19] MEDS ORDERED: LABETALOL 5 MG/ML VIAL MDV ONE (07:40)
[2024-08-19] MEDS ORDERED: SUCCINYLCHOLINE CHLORIDE 200 MG/10 ML VIAL IV ONE (07:40)
[2024-08-19] MEDS ORDERED: GLYCOPYRROLATE 0.2 MG/ML 2 ML VIAL ONE (07:40)
[2024-08-19] MEDS ORDERED: PHENYLEPHRINE 10 MG/ML VIAL ONE (07:40)
[2024-08-19] MEDS ORDERED: NEOSTIGMINE 1 MG/ML 10 ML VIAL ONE (07:40)
[2024-08-19] MEDS ORDERED: fentaNYL (PF) 50 MCG/ML 2 ML AMP ONE (07:40)
[2024-08-19] MEDS ORDERED: LIDOCAINE 1% INJ 10MG/ML (20 ML MDV) ONE (07:40)
[2024-08-19] MEDS ORDERED: PROPOFOL 10 MG/ML 20 ML VIAL IV ONE (07:40)
[2024-08-19] MEDS: LIDOCAINE 1%-EPI 1:100,000 20 ML VIAL SQ ONE (08:16)
[2024-08-19 09:23] VITALS: RESP 16; TEMP 98
[2024-08-19] MEDS: LABETALOL SYRINGE 5 MG/ML (4 ML SYR) IVP STA (09:26)
[2024-08-19] MEDS: hydrALAZINE HCL 20 MG/ML 1 ML VIAL IVP STA (09:36)
[2024-08-19] MEDS: HYDROmorphone 0.5 MG/0.5 ML SYRINGE IVP PRN (09:51)
--- NOTE | 2024-08-19 10:04 | P.OP ---
Date of Procedure: 08/19/24 Description of Procedure: SURGEON: LENNIE OJEDA MD PREOPERATIVE DIAGNOSES: 1. Gallstone pancreatitis 2. Chronic cholecystitis 3. Hypertensive heart disease 4. Hypothyroidism 5. Gastroesophageal reflux disease 6. Depressive disorder 7. History of pelvic surgery POSTOPERATIVE DIAGNOSES: 1. Gallstone pancreatitis 2. Chronic cholecystitis 3. Hypertensive heart disease 4. Hypothyroidism 5. Gastroesophageal reflux disease 6. Depressive disorder 7. History of pelvic surgery 8. Peritoneal adhesions OPERATION: 1. Robotic-assisted da Alex Xi laparoscopic lysis of adhesions greater than 50% of the case 2. Robotic-assisted da Alex Xi laparoscopic cholecystectomy, multiport with FIREFLY ESTIMATED BLOOD LOSS: 30 mL. SPECIMENS REMOVED: Gallbladder. COMPLICATIONS: None. OPERATIVE FINDINGS: 1. Moderate scarring over entire gallbladder with peritoneal adhesions, pericholecystic with features of chronic cholecystitis 2. Dilated common bile duct almost 2 cm INDICATIONS: The patient is a 79-year-old female who presents with symptomatic gallstones including gallstone pancreatitis. Robotic assisted laparoscopic approach was described. Benefits and risks of the procedure including but not limited to bleeding, infection, injury to the biliary tree was described. Informed consent was obtained. DESCRIPTION OF PROCEDURE: Patient was brought to the operating room, placed in supine position. After general induction, the abdomen had been prepped and draped in standard sterile fashion. The robotic da Alex XI system was primed. After a timeout protocol was performed, the patient had been prepped and draped in standard sterile fashion. The patient was injected with indocyanine green. A 5 mm 0 degrees laparoscopic trocar entry was performed along the left upper quadrant. The abdomen insufflated to 15 mmHg pressure which was tolerated well. Diagnostic laparoscopy demonstrated no injury to bowel viscera or mesentery. The liver surface was unremarkable. Next, two 8 mm robotic ports were placed along the right upper abdomen. The camera 8-mm port was maintained along the epigastrium. Another 8 mm port was placed along the left upper abdominal wall after exchanging the 5 mm port. Please note that the ports were placed at least 10 to 15 cm away from the target anatomy of the gallbladder. The robot was docked along the left lateral abdomen. The patient was repositioned in reverse Trendelenburg position. Using a grasper for arm 1, a grasper for arm 4, including hook cautery for arm 3, the robotic system was docked and primed as described. Instruments were interchanged by the social science research assistant including hook cautery, Bovie cautery and clip appliers. I had sat at the console. The gallbladder was scarred with peritoneal adhesions. Lysis of adhesions was performed to free the gallbladder from the surrounding tissues for over 50% of the case. Next attention was brought to the infundibulum and cystic structures. The infundibulum and cystic duct were dissected free from surrounding tissues. The cystic duct was isolated. The common bile duct was moderately dilated and measured to almost 2 cm. The cystic duct was within normal limits of 2 mm. FIREFLY was used to identify the cystic artery and cystic structures. A critical view of safety was obtained. Large PLASTIC clips were used throughout the entire case. Using a clip planting material remover, 3 clips were placed at the junction of the infundibulum and cystic duct. The cystic duct was divided between clips. Next, the cystic artery was cauterized. Electro-Bovie cautery was used to remove the gallbladder from the hepatic fossa. Hemostasis was checked and found to be adequate. The robot was undocked. I re-scrubbed into the case. Using a 10 mm Endo Catch bag via the left upper quadrant incision, the specimen was removed from the abdominal cavity. All pneumoperitoneum instruments were evacuated from the abdominal cavity. The incisions were reapproximated using 4-0 Monocryl in an interrupted subcuticular fashion. Fascial defects were less than 8 mm in size. Please note along the trocar sites, local anesthetic was placed as a field block prior to insertion of all instruments. Liquid glue was applied to the skin. At the end of the procedure needle, sponge, and instrument count had been verified correct by the surgical garment fitter. The patient was transferred to postanesthesia care unit in stable condition. Intraoperative films were shared with the patient's family. Plan - Discharge Summary Discharge Rx Participant: No New Discharge Prescriptions: New Simethicone [Gas-X] 125 mg PO AC-TID PRN #20 capsule PRN Reason: Pain Ibuprofen [Motrin] 600 mg PO Q8HR PRN #30 tab PRN Reason: Pain Acetaminophen Tab [Tylenol Tab] 1,000 mg PO Q6HR PRN #30 tablet PRN Reason: Pain Continue Levothyroxine Sodium [Synthroid] 50 mcg PO DAILY Lovastatin [Mevacor] 40 mg PO HS Lansoprazole [Prevacid] 30 mg PO DAILY Escitalopram [Lexapro] 20 mg PO DAILY buPROPion XL [Wellbutrin XL] 150 mg PO DAILY Metoprolol Tartrate [Lopressor] 25 mg PO BID Calcium Carbonate/Vitamin D3 [Caltrate 600 Plus D3 20 Mcg (800 Iu)] 600 mg PO DAILY Unk Miralax 1 dose PO DIRECTED Losartan Potassium 50 mg PO DAILY Cholecalciferol (Vitamin D3) [Vitamin D3 (5000 Iu)] 5,000 unit PO DAILY Aspirin 81 mg PO DAILY L.acidoph,Paracasei, B.lactis [Probiotic] 1 each PO DAILY Cranberry Fruit Extract [Cranberry] 1 dose PO DAILY Discharge Medication List Escitalopram [Lexapro] 20 mg PO DAILY 06/24/13 [History] Lansoprazole [Prevacid] 30 mg PO DAILY 06/24/13 [History] Levothyroxine Sodium [Synthroid] 50 mcg PO DAILY 06/24/13 [History] Lovastatin [Mevacor] 40 mg PO HS 06/24/13 [History] Aspirin 81 mg PO DAILY 06/07/20 [History] Calcium Carbonate/Vitamin D3 [Caltrate 600 Plus D3 20 Mcg (800 Iu)] 600 mg PO DAILY 06/07/20 [History] Cholecalciferol (Vitamin D3) [Vitamin D3 (5000 Iu)] 5,000 unit PO DAILY 06/07/20 [History] L.acidoph,Paracasei, B.lactis [Probiotic] 1 each PO DAILY 06/07/20 [History] Metoprolol Tartrate [Lopressor] 25 mg PO BID 06/07/20 [History] buPROPion XL [Wellbutrin XL] 150 mg PO DAILY 06/07/20 [History] Cranberry Fruit Extract [Cranberry] 1 dose PO DAILY 05/25/24 [History] Unk Miralax 1 dose PO DIRECTED 08/16/24 [History] Acetaminophen Tab [Tylenol Tab] 1,000 mg PO Q6HR PRN #30 tablet 08/19/24 [Rx] Ibuprofen [Motrin] 600 mg PO Q8HR PRN #30 tab 08/19/24 [Rx] Losartan Potassium 50 mg PO DAILY 08/19/24 [History] Simethicone [Gas-X] 125 mg PO AC-TID PRN #20 capsule 08/19/24 [Rx] Follow up Appointment(s)/Referral(s): Lennie Ojeda MD [STAFF PHYSICIAN] - 08/23/24 6:45 pm Caren Pineda MD [STAFF PHYSICIAN] - 1 Week Patient Instructions/Handouts: Laparoscopic Cholecystectomy (DC), Low Fat Diet (DC) Activity/Diet/Wound Care/Special Instructions: TELEHEALTH - DR WILL CALL YOU BETWEEN 9 am to 8 pm NO LONG DRIVES OR AIRPLANE RIDES OVER 60 MINUTES FOR THE NEXT 2 WEEKS, 09/02/24, DUE TO HIGH RISK OF PULMONARY EMBOLISM/DVTs May drive in 24 to 48 hrs Recommend low-fat diet for the next 2 days. No lifting over 10 pounds in 2 weeks until 09/02/24, May shower. No bath tub soaks for two weeks until 09/02/24, Diet as tolerated. Use Tylenol, simethicone and ibuprofen or Aleve scheduled for the next 24-48 hours for best pain relief. Use ice along incisions for today to prevent swelling. Discharge Disposition: HOME SELF-CARE
[2024-08-19 10:58] VITALS: BP 163/72; PULSE 79
== END 2024-08-19 11:48 | disposition home or self-care (01) ==
LOC: OR 05:54
PROVIDERS: ATTEND Surgery Plastic and Reconstructive Surgery
DX: K80.10 Calculus of gallbladder with chronic cholecystitis without obstruction (principal); K85.10 Biliary acute pancreatitis without necrosis or infection; K83.8 Other specified diseases of biliary tract; K66.0 Peritoneal adhesions (postprocedural) (postinfection); I11.9 Hypertensive heart disease without heart failure; E78.5 Hyperlipidemia, unspecified; E03.9 Hypothyroidism, unspecified; K21.9 Gastro-esophageal reflux disease without esophagitis; F41.9 Anxiety disorder, unspecified; F32.A Depression, unspecified; M19.90 Unspecified osteoarthritis, unspecified site; Z79.890 Hormone replacement therapy; Z79.82 Long term (current) use of aspirin; Z79.899 Other long term (current) drug therapy; Z87.891 Personal history of nicotine dependence; Z86.73 Personal history of transient ischemic attack (TIA), and cerebral infarction without residual deficits; Z90.5 Acquired absence of kidney
CPT/HCPCS: 47562; S2900; 80053; 85025; 88304